=== PATIENT | male | born 1935 | race Caucasian/White ===

== ENCOUNTER 2024-07-04 12:58 | Inpatient (IN) ==
--- NOTE | 2024-07-04 13:31 | Emergency Department Note ---
Impression & Plan Acute on chronic heart failure with preserved ejection fraction, Chronic atrial fibrillation, Chronic anticoagulation, Demand ischemia of myocardium, Pulmonary hypertension ED Provider Note NAME: ZACH MOSS AGE: 88 SEX: M : 1935 ARRIVES VIA: Walk-In INFORMANT: Patient, son ED PROVIDER(S): Luis M Saldana MD CHIEF COMPLAINT: Abnormal blood work, outpatient referral, shortness of breath MEDICAL DECISION MAKING: Patient presents with the above. IV was established and blood work was obtained. The patient does have significant inspiratory and expiratory wheezing taking shallow breaths only. Do believe the patient would benefit from respiratory support. BiPAP started along with Xopenex treatments IV methylprednisolone and IV Lasix. Patient's blood work shows a normal white count with hemoglobin 13.4. Platelet count is unremarkable. VBG pH with a pCO2 of 56 pH is 7.29. INR 2.6. Sodium 130. Patient's initial troponin of 31.2. BNP is 643. Procalcitonin was added. Chest x-ray does show evidence of left-sided pleural effusion. After speaking with the inpatient hospitalist service the patient will be admitted. Dr. Carlton did report the patient did have a recent echo. Does report that patient does have pretty significant pulmonary hypertension. Critical Care: I have personally spent 45 minutes of critical care time in direct management of this patient. This includes bedside care, interpretation of diagnostic studies, and testing, discussion with consultants, patient, and family members, and other require inpatient management activities. This 45 minutes is in excess of all separately billable procedures. Discussion w/ other healthcare providers: Dr. George inpatient medicine service Prior /Outside records reviewed: None Differential diagnosis: Reactive airway disease, pneumonia, pneumothorax, COPD, CHF, ACS, pulmonary embolism, musculoskeletal, GERD as well as other pathologies were considered. Diagnostics, as interpreted by me: ECG: A-fib, rate of 77, normal QRS duration, normal axis no ST elevations. Cardiac monitoring: An order was placed for continuous cardiac monitoring. The monitor shows a rate of 75 with irregular irregular rhythm. Patient was placed on pulse oximetry Medical decision rules: None Imaging studies: I informally interpreted the patient's chest x-ray shows left-sided pleural effusion with formal report to follow. HPI: Patient presents with family at bedside due to concern for worsening shortness of breath and leg swelling. The patient reportedly had swelling just maybe of the feet and ankles beginning in May was seen by his outpatient provider and started on Lasix which she was taking 10 mg only every other day. Patient subsequently had developed worsening swelling was placed on a daily. Patient did have outpatient blood work completed through the [facility] was noted to have a sodium of 124. He was called and referred here for further evaluation treatment. The patient reportedly has had a "phlegmy cough." No smoking history. Patient denies any increase in salt or processed food in the diet. No falls or trauma. PAST MEDICAL HISTORY: See Below PAST SURGICAL HISTORY: See Below SOCIAL HISTORY: See Below HOME MEDICATIONS: See Below ALLERGIES: See Below VITALS: See Below PHYSICAL EXAMINATION: GENERAL: Mildly ill in appearance, shallow breathing noted. EYE EXAM: Normal conjunctiva. PERRL, no anisocoria and EOM's grossly intact w/o pain. OROPHARYNX: Moist mucus membranes, grossly normal dentition. NECK: Trachea midline, no stridor. Supple, no nuchal rigidity, no adenopathy, non-tender. No signs of meningismus. FROM of the neck with good chin to chest and neck extension. LUNGS: Poor inspiratory effort, shallow breathing, diffuse inspiratory expiratory wheezing noted. HEART: Irregularly irregular, no MRG. ABDOMEN: Abdomen soft, non-tender, no masses, no rebound or guarding. BACK: No CVA TTP. SKIN: No rashes and no bruising. UPPER EXTREMITIES: Upper extremities are grossly normal. LOWER EXTREMITIES: Grossly normal, 4+ symmetric pitting edema without calf pain or erythema. NEURO EXAM: A&O x3, cranial nerves II-XII grossly intact, normal speech, moves all 4 extremities. 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 (Acute) Social History Smoking Status: Never smoker Hx Alcohol Use: No Hx Substance Use: No Preferred Language: Macedonian Financial Analyst Required: No Beliefs That Will Affect Care: None Current Living Situation: Spouse and Family Feels Safe at Home: Yes Safety Concerns: Feels Safe At This Time Assistive Devices: Denture - Upper, Denture - Lower, Glasses and Hearing Aid - Bilateral Allergies Allergies Allergy/AdvReac Type Severity Reaction Status Date / Time No Known Allergies Allergy Unverified 07/04/24 14:16 Home Meds Home Medications Medication Instructions Recorded Confirmed atorvastatin 10 mg tablet 10 mg PO .NOON 07/04/24 07/04/24 donepezil 10 mg tablet 10 mg PO PM 07/04/24 07/04/24 ferrous sulfate 325 mg (65 mg 325 mg PO .NOON 07/04/24 07/04/24 iron) tablet (FeroSul) furosemide 20 mg tablet 10 mg PO QAM 07/04/24 07/04/24 levothyroxine 50 mcg tablet 50 mcg PO DAILY 07/04/24 07/04/24 metformin 850 mg tablet 850 mg PO .NOON AND PM 07/04/24 07/04/24 metoprolol tartrate 50 mg tablet 50 mg PO .NOON AND PM 07/04/24 07/04/24 omeprazole 20 mg capsule,delayed 20 mg PO DAILY 07/04/24 07/04/24 release oxymetazoline 0.05 % nasal spray 2 spray intranasal BID PRN 07/04/24 07/04/24 (Afrin (oxymetazoline)) Congestion rivaroxaban 20 mg tablet (Xarelto) 20 mg PO PM 07/04/24 07/04/24 Results & Data (ED) Vital Signs Vital Signs - 24 hr 07/04/24 13:05 07/04/24 14:27 07/04/24 14:27 Temperature 36.4 C L Temperature Source Temporal Artery Scan Pulse Rate 92 H 85 Pulse Rate [Apical] 79 Respiratory Rate 18 26 H 21 Respiratory Effort / Characteristics Labored Short of Breath Labored Short of Breath Respiratory Depth Deep Respiratory Pattern Regular Blood Pressure 119/74 Blood Pressure [Right Arm] Blood Pressure Mean 89 Blood Pressure Mean [Right Arm] Blood Pressure Position Sitting Pulse Oximetry 93 93 99 Oxygen Delivery Method Room Air Room Air Fraction of Inspired Oxygen 30 Sepsis Recent Fever Within 48 Hours No Sepsis New/Unexplained Change in Mental Status N/A Sepsis Action Taken by Nursing No Action Required 07/04/24 14:27 07/04/24 14:27 Temperature Temperature Source Pulse Rate Pulse Rate [Apical] 80 Respiratory Rate 24 Respiratory Effort / Characteristics Labored Short of Breath Respiratory Depth Shallow Respiratory Pattern Regular Blood Pressure Blood Pressure [Right Arm] 125/77 Blood Pressure Mean Blood Pressure Mean [Right Arm] 93 Blood Pressure Position Pulse Oximetry 100 99 Oxygen Delivery Method Nebulizer Nebulizer Fraction of Inspired Oxygen Sepsis Recent Fever Within 48 Hours Sepsis New/Unexplained Change in Mental Status Sepsis Action Taken by Prison Medications Current Medication List: was personally reviewed by me Laboratory Data Attestation: I reviewed the patient's lab results. 07/04/24 13:37 07/04/24 13:37 Lab Results 07/04/24 07/04/24 Range/Units 13:37 14:13 WBC 6.18 (4.8-10.8) K/ul RBC 4.84 (4.70-6.10) M/uL Hgb 13.4 L (14.0-18.0) g/dl Hct 42.6 (42.0-52.0) % MCV 88.0 (80.0-100.0) fL MCH 27.7 (25.0-34.0) pg MCHC 31.5 L (32.0-36.0) g/dL RDW Std Deviation 46.1 (36.4-46.3) fL RDW Coeff of Мария 14.3 (11.5-14.5) % Plt Count 223 (130-400) K/uL MPV 9.2 L (9.4-12.4) fL Immature Gran % (Auto) 0.2 % Neut % (Auto) 66.3 % Lymph % (Auto) 5.7 % Da[place]hin % (Auto) 27.0 % Eos % (Auto) 0.3 % Baso % (Auto) 0.5 % Neut # (Auto) 4.10 (1.40-6.50) K/uL Lymph # (Auto) 0.35 L (1.20-3.40) K/uL Da[place]hin # (Auto) 1.67 H (0.11-0.59) K/uL Eos # (Auto) 0.02 (0.00-0.50) K/uL Baso # (Auto) 0.03 (0.00-0.20) K/uL Immature Gran # (Auto) 0.01 (0.01-0.20) K/uL PT 26.1 H (9.0-12.0) Seconds INR 2.6 H (0.9-1.1) APTT 44 H (21-31) Seconds PTT Ratio 1.6 VBG pH 7.29 L (7.36-7.41) VBG pCO2 56 H (38-50) mmHg VBG pO2 26 mmHg VBG HCO3 27 mmol/L VBG O2 Saturation < 60.0 % VBG Base Excess -0.8 mEq/L Sodium 130 L (136-145) mmol/L Potassium 5.0 (3.5-5.1) mmol/L Chloride 94 L (98-107) mmol/L Carbon Dioxide 30 (21-32) mmol/L Anion Gap 6 (3-11) BUN 28 H (6-23) mg/dl Creatinine 1.04 (0.6-1.4) mg/dl Est Cr Clr Drug Dosing Not Reportable eGFR 69.06 BUN/Creatinine Ratio 26.9 H (10-20) Glucose 131 H (70-99(Fasting)) mg/dl Calcium 9.9 (8.6-10.3) mg/dl Total Bilirubin 1.6 H (0.2-1.0) mg/dl AST 41 H (13-39) U/L ALT 17 (7-52) U/L Alkaline Phosphatase 126 H (34-104) U/L Troponin I High Sens 31.2 H (0-20) pg/ml B-Natriuretic Peptide 643 H (0-100) pg/ml Total Protein 6.3 (6.0-8.3) gm/dl Albumin 3.6 (3.4-5.0) gm/dl Globulin 2.7 (2.5-4.0) gm/dl Albumin/Globulin Ratio 1.3 (0.9-2) Procalcitonin 0.18 (0-0.5) ng/ml Administered Medications Furosemide (Furosemide 40 Mg/4 Ml Vial) 40 mg IV [id number] [facility] Stop: 08/03/24 17:29 Last Admin: 07/04/24 18:16 Dose: 40 mg Documented By: SHIRLEY Insulin Aspart (Insulin Aspart Per Unit Charge) 0 units SC ACHS [facility] Stop: 08/03/24 17:12 Last Admin: 07/04/24 17:51 Dose: Not Given Documented By: SHIRLEY Discontinued Medications Furosemide (Furosemide 40 Mg/4 Ml Vial) 40 mg IV ONE ONE Stop: 07/04/24 14:03 Last Admin: 07/04/24 14:16 Dose: 40 mg Documented By: GCC Levalbuterol HCl (Levalbuterol 1.25 Mg/3 Ml Neb) 2.5 mg NEB NOW STA Stop: 07/04/24 14:03 Last Admin: 07/04/24 14:13 Dose: 2.5 mg Documented By: [id number] Methylprednisolone (Methylprednisolone 125 Mg/2 Ml Vial) 60 mg IV NOW STA Stop: 07/04/24 14:03 Last Admin: 07/04/24 14:16 Dose: 60 mg Documented By: GCC Imaging Data Radiologist's Impression: Chest X-Ray 07/04/24 13:10 XR chest 1V portable CLINICAL HISTORY: Chest pain, nonspecific COMPARISON STUDY: None FINDINGS: There is mild cardiomegaly without pulmonary vascular congestion. There is hazy opacity at the left lower lung with obscuration of the left hemidiaphragm. There is mild blunting of the right costophrenic angle. No pneumothorax. IMPRESSION: Opacity at the left lower lung likely represents left pleural effusion and associated pulmonary consolidation. ACT 112: Negative or not required by law. Electronically signed by: Jonathan Go M.D. 07/04/2024 2:11 PM Discharge Plan Visit Data Chief Complaint: Abnormal Labs/Diagnostic Testing Stated Complaint: LOW SODIUM BLOOD TEST, REFERRED BY PCP ED Provider: Luis M Saldana Discharge Problem: Acute on chronic heart failure with preserved ejection fraction, Chronic atrial fibrillation, Chronic anticoagulation, Demand ischemia of myocardium, Pulmonary hypertension Patient Disposition: Admitted As Inpatient Discharge Instructions Interventions: ED Discharge Assessment Last Done: 07/04/24 16:18
[2024-07-04 13:59] LABS: Basophils # (auto) 0.03 K/uL (0.00-0.20); Basophils % (auto) 0.5 %; Eosinophils # (auto) 0.02 K/uL (0.00-0.50); Eosinophils % (auto) 0.3 %; Hematocrit (blood only) 42.6 % (42.0-52.0); Hemoglobin 13.4 g/dl (14.0-18.0); Immature Granulocytes # (auto) 0.01 K/uL (0.01-0.20); Immature Granulocytes % (auto) 0.2 %; Lymphocytes # (auto) 0.35 K/uL (1.20-3.40); Lymphocytes % (auto) 5.7 %; Mean Corpuscular Hemoglobin 27.7 pg (25.0-34.0); Mean Corpuscular Hgb Conc 31.5 g/dL (32.0-36.0); Mean Platelet Volume 9.2 fL (9.4-12.4); Monocytes # (auto) 1.67 K/uL (0.11-0.59); Neutrophils % (auto) 66.3 %; Platelet Count 223 K/uL (130-400); RDW Coefficient of Variation 14.3 % (11.5-14.5); RDW Standard Deviation 46.1 fL (36.4-46.3); Red Blood Count 4.84 M/uL (4.70-6.10); White Blood Count 6.18 K/ul (4.8-10.8)
--- NOTE | 2024-07-04 14:12 | XRay Report ---
XR chest 1V portable CLINICAL HISTORY: Chest pain, nonspecific COMPARISON STUDY: None FINDINGS: There is mild cardiomegaly without pulmonary vascular congestion. There is hazy opacity at the left lower lung with obscuration of the left hemidiaphragm. There is mild blunting of the right c ostophrenic angle. No pneumothorax. IMPRESSION: Opacity at the left lower lung likely represents left pleural effusion and associated pu lmonary consolidation. ACT 112: Negative or not required by law. Electronically signed by: Jonathan Go M.D. 07/04/2024 2:11 PM
[2024-07-04] MEDS: LEVALBUTEROL 1.25 MG/3 ML NEB NEB STA (14:13)
[2024-07-04 14:16] LABS: Alanine Aminotransferase 17 U/L (7-52); Albumin Globulin Ratio 1.3 (0.9-2); Albumin Level 3.6 gm/dl (3.4-5.0); Alkaline Phosphatase 126 U/L (34-104); Anion Gap 6 (3-11); Aspartate Aminotransferase 41 U/L (13-39); BUN Creatinine Ratio 26.9 (10-20); Bilirubin,Total 1.6 mg/dl (0.2-1.0); Blood Urea Nitrogen 28 mg/dl (6-23); Calcium 9.9 mg/dl (8.6-10.3); Carbon Dioxide 30 mmol/L (21-32); Chloride 94 mmol/L (98-107); Globulin 2.7 gm/dl (2.5-4.0); Glucose 131 mg/dl (70-99(Fasting)); Sodium 130 mmol/L (136-145); Total Protein 6.3 gm/dl (6.0-8.3)
[2024-07-04] MEDS: FUROSEMIDE 40 MG/4 ML VIAL IV ONE (14:16)
[2024-07-04] MEDS: methylPREDNISolone 125 MG/2 ML VIAL IV STA (14:16)
[2024-07-04 14:21] LABS: Troponin I High Sensitivity 31.2 pg/ml (0-20)
[2024-07-04 14:32] LABS: INR 2.6 (0.9-1.1); Partial Thromboplastin Ratio 1.6; Partial Thromboplastin Time 44 Seconds (21-31); Prothrombin Time 26.1 Seconds (9.0-12.0)
[2024-07-04 14:37] LABS: Base Excess VBG -0.8 mEq/L; HCO3 VBG 27 mmol/L; Oxygen Saturation VBG < 60.0 %; PCO2 VBG 56 mmHg (38-50); PO2 VBG 26 mmHg; pH VBG 7.29 (7.36-7.41)
--- NOTE | 2024-07-04 15:36 | History & Physical Report ---
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 Patient has exhibited significant amount of weight gain and edema over the last 3 to 4 weeks. Patient requires hospital level care and intervention. He needs IV diuresis and monitoring of his electrolytes and renal function. Admit to a monitored setting Continue IV Lasix for diuresis Monitor electrolytes and kidneys Continue metoprolol for rate control of his chronic atrial fibrillation Continue Xarelto for chronic anticoagulation setting of atrial fibrillation Monitor glucose and cover with insulin sliding scale Check hemoglobin A1c Check TSH to ensure patient is appropriately dosed with his Synthroid Sodium and fluid restriction in his diet Conversation with patient and son at bedside, patient has expressed his advance directives and does have a living will. He request to be DNR/DNI. History of Present Illness Chief Complaint: Increasing leg edema and some lab abnormalities. Primary Care Provider: Dejah Rivas MD Patient is an 88-year-old gentleman who over the last 6 weeks or so had noticed increasing leg edema. He did see his outpatient provider and was started on low-dose Lasix. Echocardiogram was done about 3 weeks ago which showed normal ejection fraction but pretty significant pulmonary hypertension. Patient continued to get more edematous. With this he got more short of breath and fatigued with any type of activity. Was sent to the emergency room by his PCP due to the symptoms and some laboratory abnormalities. In the emergency room his workup was consistent with right-sided heart failure with significant edema. It is noted that he has gained at least 9 kg over the past 3 to 4 weeks. BNP was elevated. Troponins were consistent with heart failure. Referred to our service for further evaluation. Time of my evaluation patient had been on BiPAP for the heart failure. This was removed. Did not have significant pulmonary congestion on imaging. He was saturating 99% on room air. With removal of the BiPAP able to converse. He states that other than the edema and the increasing fatigue he denies any chest pain. No palpitations. No real joint pains. He has been eating and drinking well. No fever or chills. Does have a wheezing and cough which is developed as edema has increased. No purulent sputum. Has noted swelling well up into his abdomen at this time. Patient's and son at the bedside and confirms history as well. Allergies Allergy/AdvReac Type Severity Reaction Status Date / Time No Known Allergies Allergy Unverified 07/04/24 14:16 Home Medications Medication Instructions Recorded Confirmed Type atorvastatin 10 mg tablet 10 mg PO .NOON 07/04/24 07/04/24 History donepezil 10 mg tablet 10 mg PO PM 07/04/24 07/04/24 History ferrous sulfate 325 mg (65 mg 325 mg PO .NOON 07/04/24 07/04/24 History iron) tablet (FeroSul) furosemide 20 mg tablet 10 mg PO QAM 07/04/24 07/04/24 History levothyroxine 50 mcg tablet 50 mcg PO DAILY 07/04/24 07/04/24 History metformin 850 mg tablet 850 mg PO .NOON AND PM 07/04/24 07/04/24 History metoprolol tartrate 50 mg tablet 50 mg PO .NOON AND PM 07/04/24 07/04/24 History omeprazole 20 mg capsule,delayed 20 mg PO DAILY 07/04/24 07/04/24 History release oxymetazoline 0.05 % nasal spray 2 spray intranasal BID PRN 07/04/24 07/04/24 History (Afrin (oxymetazoline)) Congestion rivaroxaban 20 mg tablet (Xarelto) 20 mg PO PM 07/04/24 07/04/24 History Past Med/Surg History Problem List (Updated 07/04/24 @ 15:34 by Higinio Mcnair DO) Demand ischemia of myocardium Chronic anticoagulation Hypothyroidism Diabetes mellitus type 2, controlled, with complications Chronic atrial fibrillation Pulmonary hypertension 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 Sclera clear Neck: Soft, no adenopathy Lungs: Decreased breath sounds, coarse rhonchi that clears with cough, Rales throughout CV: S1-S2, irregular Abdomen: Soft, nontender, nondistended, thick pitting edema in the abdominal pannus above the umbilicus Extremities: Thick, soft, pitting edema from lower extremities extending above the knee and posterior thighs and sacrum bilaterally Musculoskeletal: No significant joint tenderness Neuro: No focal deficits Psych: Cooperative, normal mood Results & Data Results & Data Vital Signs (Past 12 Hours) Vital Signs Temp Pulse Pulse Resp BP BP Pulse Ox 07/04/24 14:27 99 07/04/24 14:27 80 24 125/77 100 07/04/24 14:27 85 21 99 07/04/24 14:27 79 26 H 93 07/04/24 13:05 36.4 C L 92 H 18 119/74 93 O2 Del Method FiO2 07/04/24 14:27 Nebulizer 07/04/24 14:27 Nebulizer 07/04/24 14:27 30 07/04/24 14:27 Room Air 07/04/24 13:05 Room Air Diagnostic Findings Reviewed imaging, laboratory and diagnostic studies. Pertinent findings as below. Hemoglobin 13.4 WBCs 6.1 Platelets of 223 PT 26.1 INR 2.6 PTT 44 Venous pH 7.29 Venous pCO2 56 Sodium 130 Potassium 5.0 Chloride 94 BUN 28 Glucose 131 AST 41 Alk phos 126 Troponin 31.2 BNP 643 Procalcitonin 0.18 Personally reviewed chest x-ray images, left-sided pleural effusion Personally reviewed EKG, atrial fibrillation Reviewed outside EMR: Reviewed past medical history, surgical history, medications, social history and outside EMR Reviewed echocardiogram from 06/2024: Ejection fraction 65%, pulmonary hypertension 55 to 60 mmHg, right ventricular systolic dysfunction Weight in office early June was 105 kg Code Status & VTE Plan VTE Prophylaxis Plan VTE Prophylaxis will be ordered: No Reason for no VTE drug order: Contraindicated
[2024-07-04] MEDS ORDERED: GLUCAGON FOR INJ 1 MG VIAL SQ PRN (17:13)
[2024-07-04] MEDS ORDERED: GLUCOSE 10 TAB/TUBE PO PRN (17:13)
[2024-07-04] MEDS ORDERED: GLUCOSE 40% GEL 15 GM TUBE PO PRN (17:13)
[2024-07-04] MEDS ORDERED: CARBOHYDRATES FOR HYPOGLYCEMIA PO PRN (17:13)
[2024-07-04] MEDS ORDERED: ONDANSETRON INJ 2 MG/ML 2 ML VIAL IV PRN (17:13)
[2024-07-04] MEDS ORDERED: DEXTROSE 50% 50 ML SYRINGE IV PRN (17:13)
[2024-07-04] MEDS ORDERED: ALUMINUM/MAGNESIUM SUSP 30 ML UDC PO PRN (17:13)
[2024-07-04] MEDS: INSULIN ASPART PER UNIT CHARGE SC SCH (17:51)
[2024-07-04] MEDS: FUROSEMIDE 40 MG/4 ML VIAL IV SCH (18:16)
[2024-07-04] MEDS: DONEPEZIL HCL 10 MG TAB PO SCH (20:23)
[2024-07-04] MEDS: METOPROLOL TARTRATE 50 MG TAB PO SCH (20:24)
[2024-07-04] MEDS: RIVAROXABAN 20 MG TAB PO SCH (20:24)
[2024-07-05 08:27] LABS: BUN Creatinine Ratio 34.6 (10-20); Calcium 9.6 mg/dl (8.6-10.3); Creatinine Clr Calc Pharmacy 81.8 ml/min; Magnesium 1.7 mg/dl (1.7-2.4); Phosphorus 3.2 mg/dl (2.5-4.9)
[2024-07-05] MEDS: PANTOprazole 40 MG TAB PO SCH (08:41)
[2024-07-05] MEDS: LEVOTHYROXINE SODIUM 50 MCG TABLET PO SCH (08:41)
[2024-07-05 08:44] LABS: Thyroid Stimulating Hormone 2.907 uIu/ml (0.300-4.500)
[2024-07-05 10:14] LABS: Estimated Average Glucose 140 mg/dl; Hemoglobin A1C 6.5 % (4.5-5.6)
[2024-07-05] MEDS: FERROUS SULFATE 325 MG TAB PO SCH (13:02)
[2024-07-05] MEDS: ATORVASTATIN 10 MG TAB PO SCH (13:02)
--- NOTE | 2024-07-05 14:01 | Hospitalist Progress Note ---
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 Patient has responded well to IV diuresis Continue IV Lasix Continue to monitor electrolytes and renal function Therapies TSH is therapeutic continue current dose of Synthroid Glucose reviewed, hemoglobin A1c well-controlled continue current management Continue other medications as prescribed including anticoagulation Updated son via phone. Reports that's patient is at baseline confused. Does get worse anytime he is a new stressor. Reports that at neurology office what sounds like Mini-Mental status exam scored 16. Admission and Anticipated Discharge Date Admission Date: July 04, 2024 Subjective Nursing reports that patient is intermittently confused. Patient very motivated to get better. Feels that his breathing is a lot easier. Physical Exam Physical Exam: Constitutional: Alert, no acute distress, audible congestion significantly improved over yesterday HEENT: Mucous membranes moist. Lungs: Decreased breath sounds, some rhonchi and rales throughout CV: S1-S2, irregular Abdomen: Soft, nontender, nondistended, thick edema and abdominal pannus has improved, has dropped below the umbilicus Extremities: Continued thick pitting edema lower extremity up through posterior thighs and sacrum, slightly improved Neuro: No focal deficits Psych: Cooperative, normal mood, intermittent confusion Results & Data Results & Data Vital Signs (Past 12 Hours) Vital Signs Temp Pulse Pulse Resp BP Pulse Ox Pulse Ox 07/05/24 10:44 36.8 C 99 H 19 127/77 93 07/05/24 08:45 78 07/05/24 08:00 07/05/24 08:00 93 07/05/24 07:07 36.5 C 74 17 116/75 94 O2 Del Method O2 Del Method 07/05/24 10:44 Room Air 07/05/24 08:45 07/05/24 08:00 Room Air 07/05/24 08:00 Room Air 07/05/24 07:07 Room Air Diagnostic Findings Reviewed imaging, laboratory and diagnostic studies. Pertinent findings as below. Sodium 131 Chloride 93 Bicarb 33 Creatinine 0.78 Hemoglobin A1c 6.5% TSH 2.9 Intake and output reviewed, weights reviewed, negative output, weight decreased
--- NOTE | 2024-07-05 21:09 | Electrocardiogram Report ---
Test Reason : Blood Pressure : */* mmHG Vent. Rate : 77 BPM Atrial Rate : * BPM P-R Int : * ms QRS Dur : 88 ms QT Int : 362 ms P-R-T Axes : * -4 67 degrees QTcB Int : 409 ms Atrial fibrillation Low voltage QRS Cannot rule out Anteroseptal infarct , age undetermined Abnormal ECG No previous ECGs available Confirmed by Nakul Peterson ([id number]) on 07/05/2024 9:09:16 PM Referred By: Confirmed By: Nakul Peterson
[2024-07-06 08:33] LABS: BUN Creatinine Ratio 35.2 (10-20); Calcium 9.5 mg/dl (8.6-10.3); Creatinine Clr Calc Pharmacy 89.3 ml/min; Magnesium 1.6 mg/dl (1.7-2.4); Potassium 3.3 mmol/L (3.5-5.1)
[2024-07-06] MEDS: ALBUT/IPRATROP 3MG/0.5MG NEB 3 ML VIAL NEB SCH (10:49)
--- NOTE | 2024-07-06 14:21 | Hospitalist Progress Note ---
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 Edema/anasarca significantly improving Continue IV diuresis through today Replace electrolytes Consider transition to oral diuretics tomorrow Patient seems to continue to have some bronchospasm/wheezing despite his diuresis. Will schedule DuoNeb and continue to evaluate daily Continue to monitor glucose with insulin sliding scale Continue metoprolol and Xarelto for rate control of A-fib and secondary stroke prevention Continue to reorient and educate patient on condition. Updated patient's son, Jonathan via phone Admission and Anticipated Discharge Date Admission Date: July 04, 2024 Subjective Patient confused which is his baseline. Does not remember being in the hospital yesterday. Does not remember why he is in the hospital. Initially he is disagreeable to plan of care but eventually is cooperative and agreeing to stay in the hospital least another additional day. Denies chest pain. No shortness of breath. Physical Exam Physical Exam: Constitutional: Alert, nontoxic, no acute distress HEENT: Mucous membranes moist. Lungs: Decreased breath sounds, diffuse wheezing, few rales at bases CV: S1-S2, irregular Abdomen: Soft, nontender, nondistended Extremities: Lower extremity edema improving. Edema and thighs and sacrum decreasing, skin is becoming a little bit looser. Edema and abdominal pannus essentially resolved. Neuro: No focal deficits Psych: Cooperative, normal mood, abnormal memory Results & Data Results & Data Vital Signs (Past 12 Hours) Vital Signs Temp Pulse Pulse Pulse Resp BP Pulse Ox 07/06/24 11:50 36.2 C L 83 18 127/72 93 07/06/24 10:49 85 16 94 07/06/24 10:02 36.3 C L 07/06/24 09:55 07/06/24 09:39 07/06/24 09:38 88 07/06/24 09:36 114 H 18 149/96 H 95 07/06/24 08:27 07/06/24 07:18 36.3 C L 79 18 129/84 96 07/06/24 03:45 36.3 C L 71 18 111/72 93 Pulse Ox O2 Del Method O2 Del Method 07/06/24 11:50 Room Air 07/06/24 10:49 Room Air 07/06/24 10:02 07/06/24 09:55 Room Air 07/06/24 09:39 94 Room Air 07/06/24 09:38 07/06/24 09:36 Room Air 07/06/24 08:27 Room Air 07/06/24 07:18 Room Air 07/06/24 03:45 Room Air Diagnostic Findings Reviewed imaging, laboratory and diagnostic studies. Pertinent findings as below. Potassium 3.3 Magnesium 1.6 Creatinine 0.71
[2024-07-06] MEDS: POTASSIUM CHLORIDE CRTAB 20 MEQ TABCR PO SCH (14:30)
[2024-07-06] MEDS: MAGNESIUM SULFATE / D5W 1 GM/100 ML BAG IV SCH (14:32)
[2024-07-06] MEDS: ACETAMINOPHEN 325 MG TAB PO PRN (21:53)
[2024-07-06] MEDS: NYSTATIN POWDER 15GM BTL EXT SCH (22:05)
[2024-07-07] MEDS: OLANZapine 10 MG/2.1 ML SDV IM PRN (04:13)
[2024-07-07 06:43] LABS: Hematocrit (blood only) 46.5 % (42.0-52.0); Hemoglobin 15.1 g/dl (14.0-18.0); Mean Corpuscular Hemoglobin 27.7 pg (25.0-34.0); Mean Corpuscular Hgb Conc 32.5 g/dL (32.0-36.0); Mean Corpuscular Volume 85.3 fL (80.0-100.0); Mean Platelet Volume 8.8 fL (9.4-12.4); Platelet Count 218 K/uL (130-400); RDW Coefficient of Variation 14.3 % (11.5-14.5); RDW Standard Deviation 43.9 fL (36.4-46.3); Red Blood Count 5.45 M/uL (4.70-6.10); White Blood Count 7.24 K/ul (4.8-10.8)
[2024-07-07 07:03] LABS: BUN Creatinine Ratio 27.2 (10-20); Calcium 9.2 mg/dl (8.6-10.3); Creatinine Clr Calc Pharmacy 75.6 ml/min; Magnesium 1.9 mg/dl (1.7-2.4); Potassium 3.5 mmol/L (3.5-5.1)
[2024-07-07] MEDS: POTASSIUM CHLORIDE CRTAB 20 MEQ TABCR PO SCH (07:29)
[2024-07-07] MEDS: MAGNESIUM OXIDE 400 MG TAB PO SCH (07:38)
[2024-07-07] MEDS: acetaZOLAMIDE 500 MG in SYRINGE 0 ML IV ONE (07:38)
--- NOTE | 2024-07-07 13:05 | Hospitalist Progress Note ---
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 Displaying some component of contraction alkalosis with increasing carbon dioxide. No additional loop diuretic today Diamox x 1 dose today Anticipate starting oral Lasix tomorrow Continue other medications Continue therapies Continue to replace electrolytes Glucose monitoring continues with insulin coverage, overall controlled Monitor electrolytes and renal function via lab in the morning Updated son via phone, planning to have patient return home with him and family Admission and Anticipated Discharge Date Admission Date: July 04, 2024 Subjective Patient sitting up and eating breakfast this morning. Denies any pain or shortness of breath. More interactive and cooperative today. Physical Exam Physical Exam: Constitutional: Alert, nontoxic HEENT: Mucous membranes moist. Lungs: Decreased breath sounds, improved wheezing CV: S1-S2, irregular Abdomen: Soft, nontender, nondistended Extremities: Anasarca/lower extremity edema continues to improve Neuro: No focal deficits Psych: Cooperative, normal mood Results & Data Results & Data Vital Signs (Past 12 Hours) Vital Signs Temp Pulse Pulse Pulse Resp BP Pulse Ox 07/07/24 11:38 36.4 C L 98 H 16 116/60 99 07/07/24 11:17 86 18 96 07/07/24 07:43 07/07/24 07:24 83 15 96 07/07/24 07:18 36.3 C L 96 H 96 H 20 148/83 H 94 07/07/24 07:08 87 07/07/24 02:00 36.7 C 75 18 133/74 97 O2 Del Method 07/07/24 11:38 Room Air 07/07/24 11:17 Room Air 07/07/24 07:43 Room Air 07/07/24 07:24 Room Air 07/07/24 07:18 Room Air 07/07/24 07:08 07/07/24 02:00 Room Air Diagnostic Findings Reviewed imaging, laboratory and diagnostic studies. Pertinent findings as below. Intake and output reviewed, negative at least 8 L since admission Weight 95.6 kg, significantly decreased CBC stable Potassium 3.5 Carbon dioxide 38 Creatinine 0.81 Magnesium 1.9
--- NOTE | 2024-07-08 00:17 | Communication Note ---
Date of Service: July 08, 2024 Patient increasingly confused, combative, restless, and grabbing at Flood catheter. Garbled speech from the other night worse as per RN. No unusual arm or leg weakness as per RN. AP Encephalopathy, garbled speech Delirium on dementia Rule out CVA, history NOAC Rx Rule out UTI CT head, hold NOAC Rx for now Check UA ADDENDUM: UA noted to be cloudy, WBC esterase positive Urine CS, ceftriaxone for possible UTI
[2024-07-08 00:35] LABS: Appearance Urine Cloudy (Clear); Bacteria Urine Automated None Seen (None Seen); Bilirubin Urine Negative (Negative); Blood Urine 3+ (Negative); Cast Urine Automated 0-2 /lpf (0-2); Color Urine Orange; Epithelial Cell Urine Auto 0-2 /hpf (0-2); Glucose Urine UA Negative (Negative); Ketones Urine Negative (Negative); Leukocyte Esterase Urine 1+ (Negative); Nitrite Urine Negative (Negative); Protein Urine 2+ (Negative); RBC Urine Automated >20 /hpf (0-2); Specific Gravity Urine 1.019 (1.000-1.030); Urobilinogen Urine Positive (Negative); pH Urine >= 9.0 (4.5-7.5)
[2024-07-08] MEDS: OLANZapine 10 MG/2.1 ML SDV IM STA (00:47)
[2024-07-08] MEDS: cefTRIAXone SODIUM 2,000 MG/50 ML BAG IV SCH (02:46)
[2024-07-08] MEDS: MAGNESIUM SULFATE / D5W 1 GM/100 ML BAG IV ONE (04:21)
--- NOTE | 2024-07-08 09:34 | CT Scan Report ---
EXAM: CT head/brain wo con CLINICAL HISTORY: sean rod TECHNIQUE: Axial noncontrast CT scan of the brain was performed from the skull base to the high parietal region. One of the following dose reduction techniques were utilized for this exam: Automated exposure control, adjustment of the mA and/or kV according to patient size, use of iterative reconstruction. DLP 625.80 COMPARISON: None. FINDINGS: The visualized brain parenchyma shows normal appearance. No focal parenchymal abnormalities are demonstrated. Dolan-white matter differentiation is maintained. No midline shifts or deformity. No intracerebral or extra axial hematoma. Prominent ventricular system and extra-axial CSF spaces suggestive of age-related involutional changes. Normal CT appearance of the posterior fossa structures namely the cerebellar hemispheres, brainstem and cerebellar peduncles. The cerebello-pontine angles are clear. The osseous structures in the skull base are unremarkable. No definite calvarium fractures. Scanned paranasal sinuses are clear. IMPRESSION: 1. No evidence of established infarction, intracranial or extracranial hemorrhage. Early changes of stroke may not be detected on a CT scan. If strong clinical suspicion of stroke then suggest MRI with diffusion-weighted imaging. 2. Appropriate age-related involutional changes. Electronically signed by Nikolay Méndez 07-08-2024 03:06 AM
[2024-07-08 09:39] LABS: BUN Creatinine Ratio 21.6 (10-20); Calcium 8.9 mg/dl (8.6-10.3); Magnesium 1.8 mg/dl (1.7-2.4); Potassium 3.4 mmol/L (3.5-5.1)
--- NOTE | 2024-07-08 12:38 | Hospitalist Progress Note ---
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 Continue to reorient, attempt to encourage normal sleep- wake cycle. Zyprexa as needed Patient has diuresed well, metabolic alkalosis/contraction alkalosis has resolved with Diamox dosing, institute oral Lasix today Replace potassium Monitor laboratory studies Remove Flood catheter now that he is no longer having IV diuresis, this may help with some of his irritability as well. Low suspicion for UTI based on urinalysis, discontinue ceftriaxone Continue other medications as ordered Phone update to patient's son. Admission and Anticipated Discharge Date Admission Date: July 04, 2024 Subjective Events of last night noted, acute delirium in the setting of his underlying dementia most likely due to his medical condition and hospitalization. This morning much more confused than he had been previous mornings. Physical Exam Physical Exam: Constitutional: Alert, nontoxic HEENT: Mucous membranes moist. Lungs: Decreased breath sounds, few scattered wheezes CV: S1-S2, irregular Abdomen: Soft, nontender, nondistended Extremities: Lower extremity edema continues to improve Neuro: No focal deficits, generally weak Psych: Confused, irritable, at times not cooperative, abnormal memory Results & Data Results & Data Vital Signs (Past 12 Hours) Vital Signs Temp Pulse Pulse Resp BP Pulse Ox O2 Del Method 07/08/24 11:15 36.9 C 102 H 19 149/77 H 97 Room Air 07/08/24 10:46 Room Air 07/08/24 07:19 36.5 C 83 17 113/60 97 Room Air 07/08/24 07:18 92 H 07/08/24 06:54 80 18 91 Room Air 07/08/24 03:09 36.4 C L 107 H 20 108/69 93 Room Air Diagnostic Findings Reviewed imaging, laboratory and diagnostic studies. Pertinent findings as below. Potassium 3.4 Carbon dioxide 28 Creatinine 0.74 Urinalysis reviewed, negative nitrate 1+ leukocyte esterase, no bacteria seen Head CT no acute abnormalities
[2024-07-08] MEDS: FUROSEMIDE 40 MG TAB PO SCH (15:28)
--- NOTE | 2024-07-08 21:16 | Communication Note ---
Date of Service: July 08, 202407/09 2119 Code purple called. Patient noted to be unresponsive by RN. Patient only moaning to pain. SBP 100s BSG 110s. AP Unresponsiveness CT head given Xarelto Rx Hold home diuretic for now given borderline BP IV albumin [address] head No acute intracranial finding. 07/09 29 Patient awake and answering questions as per RN update.
[2024-07-08] MEDS: ALBUMIN 25% 12.5 GM/50 ML VIAL IV ONE (22:11)
[2024-07-08 22:14] LABS: BUN Creatinine Ratio 20.2 (10-20); Calcium 9.3 mg/dl (8.6-10.3); Creatinine Clr Calc Pharmacy 73.1 ml/min; Potassium 3.4 mmol/L (3.5-5.1)
[2024-07-08] MEDS: POTASSIUM CHLORIDE / WTR 10 MEQ/100 ML PLCT IV SCH (22:58)
[2024-07-08 23:20] LABS: Base Excess VBG 3.7 mEq/L; HCO3 VBG 30 mmol/L; Oxygen Saturation VBG < 60.0 %; PCO2 VBG 49 mmHg (38-50); PO2 VBG 24 mmHg; pH VBG 7.39 (7.36-7.41)
--- NOTE | 2024-07-08 23:34 | CT Scan Report ---
Exam(s): CT HEAD Without Contrast EXAM: CT Head Without Intravenous Contrast CLINICAL HISTORY: Altered mental status TECHNIQUE: Axial computed tomography images of the head/brain without intravenous contrast. CTDI is 37 mGy and DLP is 626 mGy-cm. Automated exposure control was utilized for the study. A dose lowering technique was utilized adhering to the principles of ALARA. COMPARISON: CT head earlier today FINDINGS: Brain: No intracranial hemorrhage, mass-effect or midline shift. No abnormal extra axial fluid. No evidence of acute infarct. Mild periventricular white matter hypodensities are most consistent with chronic microangiopathy. Ventricles: Unremarkable. No ventriculomegaly. Bones/joints: Unremarkable. No acute fracture. Soft tissues: Unremarkable. Sinuses: Unremarkable as visualized. No acute sinusitis. Mastoid air cells: Unremarkable as visualized. No mastoid effusion. IMPRESSION: No acute intracranial finding. Electronically signed by: Aria Collins MD 07/08/24 23:33 PM
[2024-07-09 08:08] LABS: BUN Creatinine Ratio 24.7 (10-20); Calcium 9.1 mg/dl (8.6-10.3); Creatinine Clr Calc Pharmacy 79.9 ml/min; Potassium 3.9 mmol/L (3.5-5.1)
[2024-07-09 08:24] VITALS: TEMP 97.7
[2024-07-09] MEDS: FUROSEMIDE 40 MG TAB PO SCH (13:09)
[2024-07-09 15:10] VITALS: PULSE 79; RESP 18; O2SAT 96
--- NOTE | 2024-07-09 15:25 | Discharge Summary ---
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 In the emergency room was noted to be extremely edematous and some elevated troponin. Patient was referred to our service for further evaluation. Patient was admitted to the hospital. He was diuresed with IV Lasix. Patient had recently had an echocardiogram which showed significant pulmonary hypertension and right ventricular dysfunction. His heart failure was related to this and acute cor pulmonale. The patient rapidly responded to the IV diuresis. His weight steadily decreased and his symptoms significantly improved. With the diuresis he did have some metabolic alkalosis. He was treated with 1 dose of Diamox and this was corrected. He was transition to oral Lasix. He was seen by therapies. Patient has known dementia. His family is managing this and are committed to continuing his care at home. Case management was involved in his care as well and has coordinated home services for them upon discharge. During his hospitalization he needed electrolyte replacement. He was continued on his beta-dany and anticoagulation. On the day of discharge family is at the bedside. They felt comfortable taking him home. He did pretty well with transferring from bed to chair. His vital signs are stable. His weight had decreased from 114 kg to 96.5 kg. His anasarca had essentially resolved. He continued to have some lower extremity edema but significantly improved when compared to admission. He his home Lasix dose was corrected and increased for discharge. He will continue with oral potassium supplementation. Family requested a medication to help should he get more agitated home with his dementia. They do follow regularly with outpatient neurology. Patient had responded well to IM Zyprexa here in the hospital x 1 dose. Will give some Zyprexa Zydis to use sparingly at home if he has agitation. Son and are at the bedside and repair taken will coordinate and continue to follow with outpatient providers. Notes For Next Care Provider May need to adjust diuretic dose pending patient's weight and symptoms Consider BMP, magnesium level in 10 to 14 days May need ongoing support as patient's dementia progresses. May need to consider dementia unit or other care place if progresses. Medication Changes From Visit Lasix dose increased Daily potassium Zyprexa as needed Admission HPI Per Admitting Provider Patient is an 88-year-old gentleman who over the last 6 weeks or so had noticed increasing leg edema. He did see his outpatient provider and was started on low-dose Lasix. Echocardiogram was done about 3 weeks ago which showed normal ejection fraction but pretty significant pulmonary hypertension. Patient continued to get more edematous. With this he got more short of breath and fatigued with any type of activity. Was sent to the emergency room by his PCP due to the symptoms and some laboratory abnormalities. In the emergency room his workup was consistent with right-sided heart failure with significant edema. It is noted that he has gained at least 9 kg over the past 3 to 4 weeks. BNP was elevated. Troponins were consistent with heart failure. Referred to our service for further evaluation. Time of my evaluation patient had been on BiPAP for the heart failure. This was removed. Did not have significant pulmonary congestion on imaging. He was saturating 99% on room air. With removal of the BiPAP able to converse. He states that other than the edema and the increasing fatigue he denies any chest pain. No palpitations. No real joint pains. He has been eating and drinking well. No fever or chills. Does have a wheezing and cough which is developed as edema has increased. No purulent sputum. Has noted swelling well up into his abdomen at this time. Patient's and son at the bedside and confirms history as well. Admission Exam Per Admitting Provider See H&P Discharge Exam Constitutional: Alert HEENT: Mucous membranes moist. Lungs: Clear to auscultation, decreased, no wheezes rales or rhonchi CV: S1-S2, irregular Abdomen: Soft, nontender, nondistended, edema and abdominal pannus completely resolved Extremities: Significantly decreased edema in the lower extremities, some trace posterior thigh edema, 1+ edema in lower extremities Neuro: No focal deficits Psych: Cooperative, normal mood, dementia Updated Medication List Medication Instructions Recorded Confirmed Type clotrimazole-betamethasone 1 1 applic topical BID PRN Rash 11/13/19 11/17/19 History %-0.05 % topical cream levothyroxine 50 mcg tablet 50 mcg PO QAM 11/13/19 11/17/19 History lisinopril 20 1 tab PO QAM 11/13/19 11/17/19 History mg-hydrochlorothiazide 12.5 mg tablet metformin 850 mg tablet 850 mg PO BIDM 11/13/19 11/17/19 History niacin 500 mg tablet 500 mg PO QAM 11/13/19 11/17/19 History omeprazole 20 mg tablet,delayed 20 mg PO Q OTHER DAY 11/13/19 11/17/19 History release tetrahydrozoline 0.05 % eye drops 1 drp ophthalmic (eye) QAM 11/13/19 11/17/19 History (Visine) atorvastatin 10 mg tablet 10 mg PO .NOON 07/04/24 07/04/24 History donepezil 10 mg tablet 10 mg PO PM 07/04/24 07/04/24 History ferrous sulfate 325 mg (65 mg 325 mg PO .NOON 07/04/24 07/04/24 History iron) tablet (FeroSul) furosemide 20 mg tablet 10 mg PO QAM 07/04/24 07/04/24 History levothyroxine 50 mcg tablet 50 mcg PO DAILY 07/04/24 07/04/24 History metformin 850 mg tablet 850 mg PO .NOON AND PM 07/04/24 07/04/24 History metoprolol tartrate 50 mg tablet 50 mg PO .NOON AND PM 07/04/24 07/04/24 History omeprazole 20 mg capsule,delayed 20 mg PO DAILY 07/04/24 07/04/24 History release oxymetazoline 0.05 % nasal spray 2 spray intranasal BID PRN 07/04/24 07/04/24 History (Afrin (oxymetazoline)) Congestion rivaroxaban 20 mg tablet (Xarelto) 20 mg PO PM 07/04/24 07/04/24 History furosemide 40 mg tablet 40 mg PO QAM #30 tabs 07/09/24 Rx magnesium oxide 400 mg (241.3 mg 400 mg PO DAILY #30 tabs 07/09/24 Rx magnesium) tablet olanzapine 5 mg disintegrating 5 mg PO BID PRN aggitation #20 tabs 07/09/24 Rx tablet (Zyprexa Zydis) potassium chloride 20 mEq 20 meq PO DAILY #30 tabs 07/09/24 Rx tablet,extended release(part/cryst) Hospital Stay Data Consultations 07/04/24 14:30 ED Decision to Admit Stat Diagnostic Imagining Performed 07/08/24 00:15 CT head/brain wo con Stat 07/08/24 21:15 CT head/brain wo con Stat Reviewed imaging, laboratory and diagnostic studies. Pertinent findings as below. Electrolytes within normal range Creatinine 0.[address] shows chronic microvascular white matter disease, no acute infarcts or hemorrhage. Hemoglobin A1c 6.5% TSH 2.90 Urine culture no significant growth Pending Results Patient Have Any Pending Studies at Discharge: No Discharge Instructions Given to Patient (Per Discharging Provider) Call 911 and go to the Emergency Room if: * You have tightness or pain in your chest that does not go away with rest or Nitroglycerin * You are very short of breath even with rest Call your doctor if any of the following symptoms or problems start or get worse: * Shortness of breath or difficulty breathing * Wake up at night short of breath * Chest pain * Cough *More significant swelling of your hands, fee, or legs * More fatigued or tired with your normal activity * Palpitations - sudden fast heart beats WEIGHT * Weigh yourself every morning after using the bathroom. * Use the same scale. * Wear the same amount of clothing. * Write your weight down on your chart. * Call your doctor if you gain more than 2-3 pounds in 1-2 days. * Your weight today on discharge is 211 pounds MEDICATIONS * Use this discharge instruction sheet for instructions. * Take your medications at the time your doctor ordered. * Do not skip a dose of your medicines. * If you miss a dose of medicine, take as soon as possible, but DO NOT DOUBLE A DOSE. * Read your medicine information when you get home. * Know all of the side effects of your medicine. * Call your doctor's office if you have any side effects. * Be sure all of your doctors know what medicine and herbs you take (including cold, flu, and herbal medicine). * Pain Medicine: If you do not get relief from your pain, please call your doctor for help. Take the following with you to your follow-up doctor appointments: * Weight Chart * Medication List * List of questions Do not drink excessive alcohol, beer or wine. Home Health Attestation I certify that this patient is under my care and that I, or a physicians perinatal breastfeeding assistant working with me, had a face to-face encounter that meets the home health [id number] encounter requirements with this patient. The encounter with the patient was in whole, or in part, for the following medical condition, which is the primary reason for home health care (list medical condition): I certify that, based on my findings, the following services are medically necessary home health services: My clinical findings support the need for the above services because: Further, I certify that my clinical findings support that this patient is homebound (i.e. absences from home require considerable and taxing effort and are for medical reasons or hindu services or infrequently or of short duration when for other reasons) because: Certification for Home Health Services: Based on the above findings, I certify that this patient is confined to the home and needs intermittent [facility] care, physical therapy and/or speech therapy or continues to need occupational therapy. The patient is under my care, and I have initiated the establishment of the plan of care. This patient will be followed by a physician who will periodically review the plan of care. Total Time Total Time Spent Total Time Spent (In Minutes): 39
[2024-07-09 15:31] VITALS: BP 148/73
== END 2024-07-09 16:48 | disposition home health service (06) | DRG 291 ==
LOC: ED 12:58 → 2S 15:26 → MERGE 15:26 → 2S 16:18 → 2N 07-06 09:17

== ENCOUNTER 2024-11-02 21:55 | Inpatient (IN) ==
[2024-11-02 22:20] LABS: Hematocrit (blood only) 40.3 % (42.0-52.0); Hemoglobin 13.2 g/dl (14.0-18.0); Immature Granulocytes # (auto) 0.03 K/uL (0.01-0.20); Immature Granulocytes % (auto) 0.4 %; Mean Corpuscular Hemoglobin 29.7 pg (25.0-34.0); Mean Corpuscular Volume 90.6 fL (80.0-100.0); Platelet Count 150 K/uL (130-400); RDW Standard Deviation 49.2 fL (36.4-46.3); Red Blood Count 4.45 M/uL (4.70-6.10); White Blood Count 6.97 K/ul (4.8-10.8)
[2024-11-02 22:42] LABS: Alanine Aminotransferase 10.0 U/L (7-52); Albumin Globulin Ratio 1.2 (0.9-2); Alkaline Phosphatase 123.0 U/L (34-104); Anion Gap 11.0 (3-11); Bilirubin,Total 1.3 mg/dl (0.2-1.0); Blood Urea Nitrogen 14.0 mg/dl (6-23); Calcium 9.8 mg/dl (8.6-10.3); Carbon Dioxide 22.0 mmol/L (21-32); Chloride 104.0 mmol/L (98-107); Creatinine Clr Calc Pharmacy 69.1 ml/min; Globulin 3.3 gm/dl (2.5-4.0); Glucose 118.0 mg/dl (70-99(Fasting)); Potassium 3.8 mmol/L (3.5-5.1); Sodium 137.0 mmol/L (136-145); Total Protein 7.1 gm/dl (6.0-8.3)
[2024-11-02 23:44] LABS: INR 1.9 (0.9-1.1); Partial Thromboplastin Time 51 Seconds (21-31); Prothrombin Time 19.3 Seconds (9.0-12.0)
[2024-11-03] MEDS: ACETAMINOPHEN 1,000 MG/100 ML VIAL IV STA (00:54)
--- NOTE | 2024-11-03 01:57 | XRay Report ---
Exam(s): XR CXR 1 VIEW EXAM: XR Chest, 1 View CLINICAL HISTORY: Reason for exam: Chest pain, nonspecific. TECHNIQUE: Frontal view of the chest. COMPARISON: 07/04/2024 FINDINGS: Lungs: Underinflated lungs with bronchovascular crowding, exaggerated by body habitus and technique. No focal infiltrate or consolidation is seen. Pleural space: Unremarkable. No pneumothorax. Heart: The cardiac silhouette is mildly enlarged. Mediastinum: Unremarkable. Normal mediastinal contour. Bones/joints: Unremarkable. No acute fracture. Vasculature: The aortic arch is heavily calcified. IMPRESSION: 1. The cardiac silhouette is mildly enlarged. 2. Underinflated lungs with bronchovascular crowding, exaggerated by body habitus and technique. No focal infiltrate or consolidation is seen. Electronically signed by: Ángel Weaver MD 11/03/24 01:57 AM
--- NOTE | 2024-11-03 02:03 | XRay Report ---
Exam(s): XR LEFT ELBOW, 3+ views EXAM: XR Left Elbow Complete, 3 or More Views CLINICAL HISTORY: Reason for exam: fall. TECHNIQUE: Frontal, lateral and oblique views of the left elbow. COMPARISON: No relevant prior studies available. 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 Bone mineral density is normal. There is a 3 mm enthesophyte at the tip of the olecranon. Fat pads are nondisplaced. No elbow joint effusion is seen. No acute fracture or dislocation is seen. Soft tissues: Unremarkable. IMPRESSION: Mild degenerative changes. No acute fracture or dislocation is seen. Electronically signed by: Ángel Weaver MD 11/03/24 02:01 AM
--- NOTE | 2024-11-03 02:07 | Emergency Department Note ---
Impression & Plan Accidental fall, Left rib fracture, Abrasion of elbow, left, Anticoagulated ED Provider Note NAME: ZACH MOSS AGE: 89 SEX: Male INFORMANT: Patient and family ED PROVIDER(S): Richard Reynoso MD CHIEF COMPLAINT: Fall PLAN: Disposition: Admitted Outpatient prescription management: none Referral: None MEDICAL DECISION MAKING: Patient presented because of fall and chest discomfort. ECG revealed A-fib with PVCs and incomplete bundle-branch block. Blood work was obtained. Imaging ordered. Chest x-ray was unremarkable. Patient had an unremarkable head CT. On my interpretation patient had a left rib fracture but no evidence of pneumothorax. Patient was treated with IV Tylenol. Patient's INR is elevated.Cardiac troponin negative. Given the patient's age, anticoagulation and rib fracture further evaluation and management in the hospital is felt to be appropriate. [facility], Dr. Farah. Patient was evaluated in the ER and admitted for further management Care/management discussed with: manager ent Level of care consideration(s): After review of the information above and other included data, I feel the patient requires escalation of care to admission Triage Nursing notes: reviewed and agree them. Vital Signs: reviewed and remarkable for no significant abnormalities Additional History obtained from: none Chronic Medical/Social Conditions affecting care: Dementia, anticoagulation Prior/ Outside/ External records reviewed: none Differential Diagnosis: Fracture, dislocation, contusion, intra-abdominal, pneumothorax, intrathoracic, intracranial, neurologic, compartment syndrome, rhabdomyolysis, cardiac sources, as well as other pathologies. Diagnostics, independently interpreted by me: ECG: Twelve-lead ECG reveals atrial fibrillation with PVCs at 83 bpm. Incomplete right bundle branch block. Septal Q wave. No ST elevation. Cardiac Monitoring: Cardiac monitoring ordered by me: The patient was placed on continuous cardiac monitoring and observed. It revealed atrial fibrillation at 80 bpm. Medical decision rules: none Imaging studies: X-rays and CT scan as noted above. Left rib fracture. No pneumothorax. HPI: 89 year old Male arrives for evaluation of chest pain after a fall. Patient's states that he went out to get the mail and reportedly fell onto his left side. Patient complained of an abrasion at the left elbow. did not witness the fall. Patient does have dementia. Patient denied any pain at that time but then complained of left chest pain a few hours later. EMS was summoned. He was evaluated. He was given aspirin and brought to the ER. Patient is anticoagulated on Xarelto due to history of A-fib. Pt denies LOC, headache, visual changes, neck pain, breathing difficulties, nausea, vomiting, abdominal pain, back pain, numbness, weakness, open wounds, or other complaints. PAST MEDICAL HISTORY: See Below, atrial fibrillation, anticoagulation PAST SURGICAL HISTORY: See Below, SOCIAL HISTORY: See Below, HOME MEDICATIONS: See Below ALLERGIES: See Below VITALS: See Below PHYSICAL EXAMINATION: GENERAL: Awake, alert, [id number], in no distress HENT: Normocephalic, atraumatic. Oropharynx unremarkable. EYES: Normal conjunctiva. Sclera non-icteric. PERRLA. NECK: Inspection normal. Non-tender. Supple. No nuchal rigidity. FROM. No masses. RESPIRATORY: Clear to auscultation. No wheezes. No rales. Normal respiratory effort. CARDIAC: Normal rate. Irregular rhythm. Extremities warm and well perfused. Pulses equal. No JVD. GI: Soft, non-distended. No tenderness to palpation. No rebound or guarding. No masses. RECTAL: Deferred. MUSCULOSKELETAL: Right upper and both lower extremities are atraumatic. Chest examination reveals no tenderness. The back is symmetrical on inspection without obvious abnormality. There is no CVA tenderness to palpation. No joint edema. There is a moderate size skin tear over the lateral aspect of the left elbow. Good range of motion without obvious bony deformity or tenderness. LOWER EXTREMITIES: Calves are equal size bilaterally and non-tender. Tra 1+ ce edema. No discoloration. NEURO: Mildly demented sensorium. No sensory or motor deficits noted. SKIN: No rash or jaundice noted. 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 Metabolic alkalosis Electrolyte abnormality Cor pulmonale, acute Alzheimer's dementia Demand ischemia of myocardium (Acute) Chronic anticoagulation (Acute) Hypothyroidism Diabetes mellitus type 2, controlled, with complications Chronic atrial fibrillation (Acute) Pulmonary hypertension (Acute) 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 (Acute) Blood in stool Anemia Encounter for pre-operative examination Medical History (Updated 11/03/24 @ 02:07 by Richard Reynoso MD) Diabetes mellitus, type 2 Hypothyroidism Hearing deficit Hyperlipidemia Hypertension Surgical History (System 07/05/24 @ 09:14 by Mer[facility] Spence) History of arthroscopy of right shoulder History of appendectomy 1950--ruptured 48hrs, "wrapped around liver", approx 10in long incision History of colonoscopy History of tooth extraction all teeth History of bilateral cataract extraction Family History (System 07/05/24 @ 09:14 by [facility] Spence) Other No family history of adverse response to anesthesia Social History (System 07/05/24 @ 09:14 by Mer[facility] Spence) Smoking Status: Unknown if ever smoked Second Hand Exposure: No; Do You Dip or Chew Tobacco: No; Hx Alcohol Use: No Hx Substance Use: No Preferred Language: Lebanese Communication Ability: Effective Gate Tender Required: No Beliefs That Will Affect Care: None Current Living Situation: Spouse and Family Feels Safe at Home: Yes Assistive Devices: None Allergies Allergies Allergy/AdvReac Type Severity Reaction Status Date / Time No Known Allergies Allergy Verified 07/05/24 09:14 Home Meds Home Medications Medication Instructions Recorded Confirmed clotrimazole-betamethasone 1 1 applic topical BID PRN Rash 11/13/19 11/02/24 %-0.05 % topical cream levothyroxine 50 mcg tablet 50 mcg PO QAM 11/13/19 11/02/24 metformin 850 mg tablet 850 mg PO BIDM 11/13/19 11/02/24 niacin 500 mg tablet 500 mg PO QAM 11/13/19 11/02/24 atorvastatin 10 mg tablet 10 mg PO QDL 07/04/24 11/02/24 donepezil 10 mg tablet 10 mg PO QPM 07/04/24 11/02/24 ferrous sulfate 325 mg (65 mg 325 mg PO QDL 07/04/24 11/02/24 iron) tablet (FeroSul) metoprolol tartrate 50 mg tablet 50 mg PO BID 07/04/24 11/02/24 omeprazole 20 mg capsule,delayed 20 mg PO QDL 07/04/24 11/02/24 release rivaroxaban 20 mg tablet (Xarelto) 20 mg PO PM 07/04/24 11/02/24 magnesium oxide 400 mg (241.3 mg 400 mg PO QDL 11/02/24 11/02/24 magnesium) tablet olanzapine 5 mg disintegrating 5 mg PO .DAILY AT NOON 11/02/24 11/02/24 tablet spironolactone 25 mg tablet 25 mg PO QAM 11/03/24 11/03/24 Previous Rx's Medication Instructions Recorded furosemide 40 mg tablet 40 mg PO QAM #30 tabs 07/09/24 haloperidol 5 mg tablet 5 mg PO BID PRN agitation #20 tabs 07/09/24 Results & Data (ED) Vital Signs Vital Signs - 24 hr 11/02/24 22:00 11/02/24 22:07 11/02/24 22:07 Temperature 37 C Temperature Source Oral Pulse Rate 93 H 98 H Pulse Rate [Apical] Pulse Rhythm Irregular Pulse Strength Normal Respiratory Rate 25 H Respiratory Effort / Characteristics Non-Labored Spontaneous Respiratory Depth Normal Respiratory Pattern Regular Blood Pressure 148/100 H Blood Pressure [Right Arm] Blood Pressure Mean 116 Blood Pressure Mean [Right Arm] Blood Pressure Position Lying Blood Pressure Position [Right Arm] Pulse Oximetry 96 97 Oxygen Delivery Method Room Air Room Air Sepsis Recent Fever Within 48 Hours No Sepsis New/Unexplained Change in Mental Status No Sepsis Action Taken by Nursing No Action Required 11/02/24 22:07 11/02/24 22:14 11/02/24 22:14 Temperature Temperature Source Pulse Rate 85 Pulse Rate [Apical] Pulse Rhythm Regular Pulse Strength Respiratory Rate 24 Respiratory Effort / Characteristics Respiratory Depth Respiratory Pattern Blood Pressure Blood Pressure [Right Arm] 148/100 H Blood Pressure Mean Blood Pressure Mean [Right Arm] 116 Blood Pressure Position Blood Pressure Position [Right Arm] Lying Pulse Oximetry 96 97 Oxygen Delivery Method Room Air Room Air Room Air Sepsis Recent Fever Within 48 Hours Sepsis New/Unexplained Change in Mental Status Sepsis Action Taken by Nursing 11/02/24 23:00 11/03/24 00:00 11/03/24 01:00 Temperature Temperature Source Pulse Rate Pulse Rate [Apical] 86 70 93 H Pulse Rhythm Pulse Strength Respiratory Rate 16 16 16 Respiratory Effort / Characteristics Respiratory Depth Respiratory Pattern Blood Pressure Blood Pressure [Right Arm] 138/73 132/77 144/76 H Blood Pressure Mean Blood Pressure Mean [Right Arm] 94 95 98 Blood Pressure Position Blood Pressure Position [Right Arm] Pulse Oximetry 96 97 98 Oxygen Delivery Method Room Air Room Air Room Air Sepsis Recent Fever Within 48 Hours Sepsis New/Unexplained Change in Mental Status Sepsis Action Taken by Nursing 11/03/24 02:00 11/03/24 02:03 11/03/24 03:00 Temperature Temperature Source Pulse Rate 87 Pulse Rate [Apical] 97 H 105 H Pulse Rhythm Pulse Strength Respiratory Rate 18 16 Respiratory Effort / Characteristics Respiratory Depth Respiratory Pattern Blood Pressure Blood Pressure [Right Arm] 154/74 H 177/106 H Blood Pressure Mean Blood Pressure Mean [Right Arm] 100 129 Blood Pressure Position Blood Pressure Position [Right Arm] Pulse Oximetry 99 96 Oxygen Delivery Method Room Air Room Air Sepsis Recent Fever Within 48 Hours Sepsis New/Unexplained Change in Mental Status Sepsis Action Taken by Nursing 11/03/24 04:00 Temperature Temperature Source Pulse Rate Pulse Rate [Apical] 98 H Pulse Rhythm Pulse Strength Respiratory Rate 16 Respiratory Effort / Characteristics Respiratory Depth Respiratory Pattern Blood Pressure Blood Pressure [Right Arm] 165/99 H Blood Pressure Mean Blood Pressure Mean [Right Arm] 121 Blood Pressure Position Blood Pressure Position [Right Arm] Pulse Oximetry 97 Oxygen Delivery Method Room Air Sepsis Recent Fever Within 48 Hours Sepsis New/Unexplained Change in Mental Status Sepsis Action Taken by Nursing Laboratory Data 11/03/24 07:14 11/03/24 07:14 Lab Results 11/02/24 Range/Units 22:05 WBC 6.97 (4.8-10.8) K/ul RBC 4.45 L (4.70-6.10) M/uL Hgb 13.2 L (14.0-18.0) g/dl Hct 40.3 L (42.0-52.0) % MCV 90.6 (80.0-100.0) fL MCH 29.7 (25.0-34.0) pg MCHC 32.8 (32.0-36.0) g/dL RDW Std Deviation 49.2 H (36.4-46.3) fL RDW Coeff of Мария 14.9 H (11.5-14.5) % Plt Count 150 (130-400) K/uL MPV 9.9 (9.4-12.4) fL Immature Gran % (Auto) 0.4 % Neut % (Auto) 70.8 % Lymph % (Auto) 10.9 % [place] % (Auto) 11.3 % Eos % (Auto) 6.0 % Baso % (Auto) 0.6 % Neut # (Auto) 4.93 (1.40-6.50) K/uL Lymph # (Auto) 0.76 L (1.20-3.40) K/uL [place] # (Auto) 0.79 H (0.11-0.59) K/uL Eos # (Auto) 0.42 (0.00-0.50) K/uL Baso # (Auto) 0.04 (0.00-0.20) K/uL Immature Gran # (Auto) 0.03 (0.01-0.20) K/uL PT 19.3 H (9.0-12.0) Seconds INR 1.9 H (0.9-1.1) APTT 51 H (21-31) Seconds PTT Ratio 1.9 Sodium 137 (136-145) mmol/L Potassium 3.8 (3.5-5.1) mmol/L Chloride 104 (98-107) mmol/L Carbon Dioxide 22 (21-32) mmol/L Anion Gap 11 (3-11) BUN 14 (6-23) mg/dl Creatinine 0.82 (0.6-1.4) mg/dl Est Cr Clr Drug Dosing 69.1 ml/min eGFR 83.97 BUN/Creatinine Ratio 17.1 (10-20) Glucose 118 H (70-99(Fasting)) mg/dl Calcium 9.8 (8.6-10.3) mg/dl Total Bilirubin 1.3 H (0.2-1.0) mg/dl AST 22 (13-39) U/L ALT 10 (7-52) U/L Alkaline Phosphatase 123 H (34-104) U/L Troponin I High Sens 9.6 (0-20) pg/ml Total Protein 7.1 (6.0-8.3) gm/dl Albumin 3.8 (3.4-5.0) gm/dl Globulin 3.3 (2.5-4.0) gm/dl Albumin/Globulin Ratio 1.2 (0.9-2) Administered Medications Furosemide (Furosemide 40 Mg Tab) 40 mg PO QAM [facility] Stop: 12/03/24 08:59 Last Admin: 11/03/24 09:33 Dose: 40 mg Documented By: SKB Levothyroxine Sodium (Levothyroxine Sodium 50 Mcg Tablet) 50 mcg PO DAILYBB [facility] Stop: 12/03/24 06:59 Last Admin: 11/03/24 09:34 Dose: 50 mcg Documented By: PHEOBE Metoprolol Tartrate (Metoprolol Tartrate 50 Mg Tab) 50 mg PO BID [facility] Stop: 12/03/24 08:59 Last Admin: 11/03/24 09:33 Dose: 50 mg Documented By: PHOEBE Niacin (Niacin 500 Mg Tab) [facility] Stop: 12/03/24 08:59 Last Admin: 11/03/24 09:33 Dose: 500 mg Documented By: PHOEBE Spironolactone (Spironolactone 25 Mg Tab) 25 mg PO QAM [facility] Stop: 12/03/24 08:59 Last Admin: 11/03/24 09:33 Dose: 25 mg Documented By: PHOEBE Discontinued Medications Haloperidol Lactate (Haloperidol Lactate 5 Mg/Ml 1 Ml Vial) 2.5 mg IM NOW STA Stop: 11/03/24 04:50 Last Admin: 11/03/24 05:10 Dose: 2.5 mg Documented By: CHARLES Haloperidol Lactate (Haloperidol Lactate 5 Mg/Ml 1 Ml Vial) 2.5 mg IM NOW STA Stop: 11/03/24 05:23 Last Admin: 11/03/24 06:11 Dose: 2.5 mg Documented By: CHARLES Acetaminophen (Ofirmev) 1,000 mg in 100 mls @ 400 mls/hr IV NOW STA Stop: 11/03/24 00:17 Last Infusion: 11/03/24 01:10 Dose: Infused Documented By: Admin: 11/03/24 00:54 Dose: 400 mls/hr Documented By: CROW Lorazepam (Lorazepam 2 Mg/1 Ml Vial) 0.25 mg IV NOW STA Stop: 11/03/24 06:10 Last Admin: 11/03/24 06:26 Dose: 0.25 mg Documented By: MARK Olanzapine (Olanzapine 10 Mg/2.1 Ml Sdv) 2.5 mg IM NOW STA Stop: 11/03/24 02:30 Last Admin: 11/03/24 02:39 Dose: 2.5 mg Documented By: CHARLES Imaging Data Radiologist's Impression: Chest X-Ray 11/02/24 22:14 Exam(s): XR CXR 1 VIEW EXAM: XR Chest, 1 View CLINICAL HISTORY: Reason for exam: Chest pain, nonspecific. TECHNIQUE: Frontal view of the chest. COMPARISON: 07/04/2024 FINDINGS: Lungs: Underinflated lungs with bronchovascular crowding, exaggerated by body habitus and technique. No focal infiltrate or consolidation is seen. Pleural space: Unremarkable. No pneumothorax. Heart: The cardiac silhouette is mildly enlarged. Mediastinum: Unremarkable. Normal mediastinal contour. Bones/joints: Unremarkable. No acute fracture. Vasculature: The aortic arch is heavily calcified. IMPRESSION: 1. The cardiac silhouette is mildly enlarged. 2. Underinflated lungs with bronchovascular crowding, exaggerated by body habitus and technique. No focal infiltrate or consolidation is seen. Electronically signed by: Ángel Weaver MD 11/03/24 01:[address] 11/02/24 22:37 Exam(s): CT CHEST Without Contrast EXAM: CT Chest Without Intravenous Contrast CLINICAL HISTORY: Reason for exam: fall Left rib pain. TECHNIQUE: Axial computed tomography images of the chest without intravenous contrast. CTDI is 17.21 mGy and DLP is 598.83 mGy-cm. Automated exposure control was utilized for the study. A dose lowering technique was utilized adhering to the principles of ALARA. COMPARISON: No relevant prior studies available. FINDINGS: Lungs: Unremarkable. No mass. No consolidation. Pleural space: See below. Heart: The heart is mildly enlarged. There is moderate coronary calcification involving all coronary vessels. No pericardial effusion. Mediastinum: 10 cm hiatal hernia containing half of the stomach. Bones/joints: There is an acute slightly displaced fracture of the mid left 6th rib. No pneumothorax or pleural fluid collection is seen. Mild degenerative changes throughout the spine. No acute spinal fracture or destructive bone lesion is seen. Soft tissues: Unremarkable. Vasculature: The thoracic aorta is heavily calcified but nondilated. This is a noncontrast study. Lymph nodes: Unremarkable. No enlarged lymph nodes. IMPRESSION: 1. There is an acute slightly displaced fracture of the mid left 6th rib. No pneumothorax or pleural fluid collection is seen. 2. 10 cm hiatal hernia containing half of the stomach. Electronically signed by: Ángel Weaver MD 11/03/24 02:[address] 11/02/24 22:41 Exam(s): CT HEAD Without Contrast EXAM: CT Head Without Intravenous Contrast CLINICAL HISTORY: Reason for exam: Trauma. TECHNIQUE: Axial computed tomography images of the head/brain without intravenous contrast. CTDI is 38.17 mGy and DLP is 624.41 mGy-cm. Automated exposure control was utilized for the study. A dose lowering technique was utilized adhering to the principles of ALARA. COMPARISON: Prior head CT from July 08, 2024. FINDINGS: Brain: Unremarkable. No hemorrhage. No significant white matter disease. No edema. Ventricles: Unremarkable. No ventriculomegaly. Bones/joints: Unremarkable. No acute fracture. Soft tissues: Unremarkable. Sinuses: Unremarkable as visualized. No acute sinusitis. Mastoid air cells: Unremarkable as visualized. No mastoid effusion. IMPRESSION: No evidence of acute intracranial pathology. Electronically signed by: Huma Galvez MD 11/03/24 02:20 AM Elbow X-Ray 11/02/24 23:38 Exam(s): XR LEFT ELBOW, 3+ views EXAM: XR Left Elbow Complete, 3 or More Views CLINICAL HISTORY: Reason for exam: fall. TECHNIQUE: Frontal, lateral and oblique views of the left elbow. COMPARISON: No relevant prior studies available. 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 Bone mineral density is normal. There is a 3 mm enthesophyte at the tip of the olecranon. Fat pads are nondisplaced. No elbow joint effusion is seen. No acute fracture or dislocation is seen. Soft tissues: Unremarkable. IMPRESSION: Mild degenerative changes. No acute fracture or dislocation is seen. Electronically signed by: Ángel Weaver MD 11/03/24 02:01 AM Discharge Plan Visit Data Chief Complaint: Chest Pain Stated Complaint: Chest Pain, Fall ED Provider: Richard Reynoso Discharge Problem: Accidental fall, Left rib fracture, Abrasion of elbow, left, Anticoagulated Patient Disposition: Admitted As Inpatient Condition: Fair Discharge Instructions Interventions: ED Discharge Assessment Last Done: 11/03/24 06:25
--- NOTE | 2024-11-03 02:22 | CT Scan Report ---
Exam(s): CT HEAD Without Contrast EXAM: CT Head Without Intravenous Contrast CLINICAL HISTORY: Reason for exam: Trauma. TECHNIQUE: Axial computed tomography images of the head/brain without intravenous contrast. CTDI is 38.17 mGy and DLP is 624.41 mGy-cm. Automated exposure control was utilized for the study. A dose lowering technique was utilized adhering to the principles of ALARA. COMPARISON: Prior head CT from July 08, 2024. FINDINGS: Brain: Unremarkable. No hemorrhage. No significant white matter disease. No edema. Ventricles: Unremarkable. No ventriculomegaly. Bones/joints: Unremarkable. No acute fracture. Soft tissues: Unremarkable. Sinuses: Unremarkable as visualized. No acute sinusitis. Mastoid air cells: Unremarkable as visualized. No mastoid effusion. IMPRESSION: No evidence of acute intracranial pathology. Electronically signed by: Huma Galvez MD 11/03/24 02:20 AM
[2024-11-03] MEDS: HALOPERIDOL LACTATE 5 MG/ML 1 ML VIAL IM STA ×2 (05:10→06:11)
--- NOTE | 2024-11-03 05:11 | History & Physical Report ---
Date of Service November 03, 2024 Assessment & Plan (1) Left rib fracture: Plan: 89-year-old male with past medical history significant for hypothyroidism, dyslipidemia, chronic heart failure with preserved ejection fraction, cor pulmonale, longstanding persistent atrial fibrillation, hypertension, GERD, pyogenic granuloma of lip, Alzheimer's disease, anemia, history of CVA who lives at his home with his was brought in because of fall and found to have left sixth rib fracture. Patient is currently somewhat restless and sitting at the nursing station chatting with the staff. Received IM Zyprexa but did not helped much. He seems pleasant. Knows his name. Could tell his date of . But could not tell current dates and place. Seems talking tangentially. Denies headache. Denies chest pain. Denies back pain. Could not get much history from the patient. Hemodynamics are okay. As per ER patient went out to get the mail and reportedly fell onto his left side. Has an abrasion on left elbow and status post dressing in the ER. did not witness the fall. Patient seems denied any pain at the time of fall but then few hours later complained of left chest pain and EMS was summoned. He was given aspirin and brought to the hospital. Patient also on Xarelto for A-fib. Able to reach his son. As per son patient is DNR/DNI. 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 Left rib fracture Status post fall Abrasion to the left elbow status post dressing the ER Imaging studies showing left sixth rib fracture Currently seems pain under control IV Tylenol as needed Complaint of chest pain Possible from above Troponin okay Currently asymptomatic Will follow repeat EKG and repeat troponins Alzheimer's disease Dementia Continue home donepezil and olanzapine and Haldol as needed Received IV Zyprexa and IV Haldol and iv ativan so far on soft restraints one on one prn close monitor for delirium Chronic heart failure with preserved ejection fraction Cor pulmonale Continue home spironolactone and Lasix Monitor for volume overload Atrial fibrillation On metoprolol and Xarelto Hypertension On metoprolol succinate and diuretics Will monitor GERD On omeprazole Diabetes Hold metformin Sliding scale Will monitor Hypothyroidism On Synthyroid Hyperlipidemia On statin. 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 Patient is currently somewhat restless and sitting at the nursing station chatting with the staff. Received IM Zyprexa but did not helped much. He seems pleasant. Knows his name. Could tell his date of . But could not tell current dates and place. Seems talking tangentially. Denies headache. Denies chest pain. Denies back pain. Could not get much history from the patient. Hemodynamics are okay. As per ER patient went out to get the mail and reportedly fell onto his left side. Has an abrasion on left elbow and status post dressing in the ER. did not witness the fall. Patient seems denied any pain at the time of fall but then few hours later complained of left chest pain and EMS was summoned. He was given aspirin and brought to the hospital. Patient also on Xarelto for A-fib. Able to reach his son. As per son patient is DNR/DNI. 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 Past medical history. As mentioned above Past surgical history. No surgical history on file. Social history. . No smoking. No alcohol use. No drug use. Family history. Mother had colon cancer. Allergies Allergy/AdvReac Type Severity Reaction Status Date / Time No Known Allergies Allergy Verified 07/05/24 09:14 Home Medications Medication Instructions Recorded Confirmed Type clotrimazole-betamethasone 1 1 applic topical BID PRN Rash 11/13/19 11/02/24 History %-0.05 % topical cream levothyroxine 50 mcg tablet 50 mcg PO QAM 11/13/19 11/02/24 History metformin 850 mg tablet 850 mg PO BIDM 11/13/19 11/02/24 History niacin 500 mg tablet 500 mg PO QAM 11/13/19 11/02/24 History atorvastatin 10 mg tablet 10 mg PO QDL 07/04/24 11/02/24 History donepezil 10 mg tablet 10 mg PO QPM 07/04/24 11/02/24 History ferrous sulfate 325 mg (65 mg 325 mg PO QDL 07/04/24 11/02/24 History iron) tablet (FeroSul) metoprolol tartrate 50 mg tablet 50 mg PO BID 07/04/24 11/02/24 History omeprazole 20 mg capsule,delayed 20 mg PO QDL 07/04/24 11/02/24 History release rivaroxaban 20 mg tablet (Xarelto) 20 mg PO PM 07/04/24 11/02/24 History furosemide 40 mg tablet 40 mg PO QAM #30 tabs 07/09/24 11/02/24 Rx haloperidol 5 mg tablet 5 mg PO BID PRN agitation #20 tabs 07/09/24 11/02/24 Rx magnesium oxide 400 mg (241.3 mg 400 mg PO QDL 11/02/24 11/02/24 History magnesium) tablet olanzapine 5 mg disintegrating 5 mg PO .DAILY AT NOON 11/02/24 11/02/24 History tablet spironolactone 25 mg tablet 25 mg PO QAM 11/03/24 11/03/24 History Past Med/Surg History Problem List (Updated 11/03/24 @ 02:07 by Richard Reynoso MD) Anticoagulated (Acute) Abrasion of elbow, left (Acute) Left rib fracture (Acute) Accidental fall (Acute) 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 Metabolic alkalosis Electrolyte abnormality Cor pulmonale, acute Alzheimer's dementia Demand ischemia of myocardium (Acute) Chronic anticoagulation (Acute) Hypothyroidism Diabetes mellitus type 2, controlled, with complications Chronic atrial fibrillation (Acute) Pulmonary hypertension (Acute) 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 (Acute) Blood in stool Anemia Encounter for pre-operative examination Medical History (Updated 11/03/24 @ 02:07 by Richard Reynoso MD) Diabetes mellitus, type 2 Hypothyroidism Hearing deficit Hyperlipidemia Hypertension Surgical History (System 07/05/24 @ 09:14 by Mercy Spence) History of arthroscopy of right shoulder History of appendectomy 195--ruptured 48hrs, "wrapped around liver", approx 10in long incision History of colonoscopy History of tooth extraction all teeth History of bilateral cataract extraction Family History (System 07/05/24 @ 09:14 by Mercy Spence) Other No family history of adverse response to anesthesia Social History (System 07/05/24 @ 09:14 by Mercy Spence) Smoking Status: Unknown if ever smoked Second Hand Exposure: No; Do You Dip or Chew Tobacco: No; Hx Alcohol Use: No Hx Substance Use: No Preferred Language: Mauritanian Communication Ability: Effective 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 ENT- oropharynx clear Neck- supple, no JVD. Lungs- clear to auscultation no wheezing or crackles Heart- regular rhythm; no murmur, no gallop. Abdomen- normal bowel sounds, soft, nontender, no distension Extremities- moves extremities. left elbow in dressing Neuro- alert, oriented x 1; PERRL, no facial palsy; no dysarthria; moves extremities Results & Data Results & Data Vital Signs (Past 12 Hours) Vital Signs Temp Pulse Pulse Resp BP BP Pulse Ox 11/03/24 04:00 98 H 16 165/99 H 97 11/03/24 03:00 105 H 16 177/106 H 96 11/03/24 02:03 87 11/03/24 02:00 97 H 18 154/74 H 99 11/03/24 01:00 93 H 16 144/76 H 98 11/03/24 00:00 70 16 132/77 97 11/02/24 23:00 86 16 138/73 96 11/02/24 22:14 85 24 97 11/02/24 22:14 11/02/24 22:07 148/100 H 96 11/02/24 22:07 97 11/02/24 22:07 37 C 98 H 25 H 148/100 H 96 11/02/24 22:00 93 H O2 Del Method 11/03/24 04:00 Room Air 11/03/24 03:00 Room Air 11/03/24 02:03 11/03/24 02:00 Room Air 11/03/24 01:00 Room Air 11/03/24 00:00 Room Air 11/02/24 23:00 Room Air 11/02/24 22:14 Room Air 11/02/24 22:14 Room Air 11/02/24 22:07 Room Air 11/02/24 22:07 Room Air 11/02/24 22:07 Room Air 11/02/24 22:00 Diagnostic Findings Laboratory Results WBC 6.97 K/ul (4.8-10.8) 11/02/24 22:05 RBC 4.45 M/uL (4.70-6.10) L 11/02/24 22:05 Hgb 13.2 g/dl (14.0-18.0) L 11/02/24 22:05 Hct 40.3 % (42.0-52.0) L 11/02/24 22:05 MCV 90.6 fL (80.0-100.0) 11/02/24 22:05 MCH 29.7 pg (25.0-34.0) 11/02/24 22:05 MCHC 32.8 g/dL (32.0-36.0) 11/02/24 22:05 RDW Std Deviation 49.2 fL (36.4-46.3) H 11/02/24 22:05 RDW Coeff of Мария 14.9 % (11.5-14.5) H 11/02/24 22:05 Plt Count 150 K/uL (130-400) 11/02/24 22:05 MPV 9.9 fL (9.4-12.4) 11/02/24 22:05 Immature Gran % (Auto) 0.4 % 11/02/24 22:05 Neut % (Auto) 70.8 % 11/02/24 22:05 Lymph % (Auto) 10.9 % 11/02/24 22:05 [place] % (Auto) 11.3 % 11/02/24 22:05 Eos % (Auto) 6.0 % 11/02/24 22:05 Baso % (Auto) 0.6 % 11/02/24 22:05 Neut # (Auto) 4.93 K/uL (1.40-6.50) 11/02/24 22:05 Lymph # (Auto) 0.76 K/uL (1.20-3.40) L 11/02/24 22:05 [place] # (Auto) 0.79 K/uL (0.11-0.59) H 11/02/24 22:05 Eos # (Auto) 0.42 K/uL (0.00-0.50) 11/02/24 22:05 Baso # (Auto) 0.04 K/uL (0.00-0.20) 11/02/24 22:05 Immature Gran # (Auto) 0.03 K/uL (0.01-0.20) 11/02/24 22:05 PT 19.3 Seconds (9.0-12.0) H 11/02/24 22:05 INR 1.9 (0.9-1.1) H 11/02/24 22:05 APTT 51 Seconds (21-31) H 11/02/24 22:05 PTT Ratio 1.9 11/02/24 22:05 Sodium 137 mmol/L (136-145) 11/02/24 22:05 Potassium 3.8 mmol/L (3.5-5.1) 11/02/24 22:05 Chloride 104 mmol/L (98-107) 11/02/24 22:05 Carbon Dioxide 22 mmol/L (21-32) 11/02/24 22:05 Anion Gap 11 (3-11) 11/02/24 22:05 BUN 14 mg/dl (6-23) 11/02/24 22:05 Creatinine 0.82 mg/dl (0.6-1.4) 11/02/24 22:05 Est Cr Clr Drug Dosing 69.1 ml/min 11/02/24 22:05 eGFR 83.97 11/02/24 22:05 BUN/Creatinine Ratio 17.1 (10-20) 11/02/24 22:05 Glucose 118 mg/dl (70-99(Fasting)) H 11/02/24 22:05 Calcium 9.8 mg/dl (8.6-10.3) 11/02/24 22:05 Total Bilirubin 1.3 mg/dl (0.2-1.0) H 11/02/24 22:05 AST 22 U/L (13-39) 11/02/24 22:05 ALT 10 U/L (7-52) 11/02/24 22:05 Alkaline Phosphatase 123 U/L (34-104) H 11/02/24 22:05 Troponin I High Sens 9.6 pg/ml (0-20) 11/02/24 22:05 Total Protein 7.1 gm/dl (6.0-8.3) 11/02/24 22:05 Albumin 3.8 gm/dl (3.4-5.0) 11/02/24 22:05 Globulin 3.3 gm/dl (2.5-4.0) 11/02/24 22:05 Albumin/Globulin Ratio 1.2 (0.9-2) 11/02/24 22:05 Impressions Chest X-Ray 11/02/24 22:14 Exam(s): XR CXR 1 VIEW EXAM: XR Chest, 1 View CLINICAL HISTORY: Reason for exam: Chest pain, nonspecific. TECHNIQUE: Frontal view of the chest. COMPARISON: 07/04/2024 FINDINGS: Lungs: Underinflated lungs with bronchovascular crowding, exaggerated by body habitus and technique. No focal infiltrate or consolidation is seen. Pleural space: Unremarkable. No pneumothorax. Heart: The cardiac silhouette is mildly enlarged. Mediastinum: Unremarkable. Normal mediastinal contour. Bones/joints: Unremarkable. No acute fracture. Vasculature: The aortic arch is heavily calcified. IMPRESSION: 1. The cardiac silhouette is mildly enlarged. 2. Underinflated lungs with bronchovascular crowding, exaggerated by body habitus and technique. No focal infiltrate or consolidation is seen. Electronically signed by: Ángel Weaver MD 11/03/24 01:[address] 11/02/24 22:37 Exam(s): CT CHEST Without Contrast EXAM: CT Chest Without Intravenous Contrast CLINICAL HISTORY: Reason for exam: fall Left rib pain. TECHNIQUE: Axial computed tomography images of the chest without intravenous contrast. CTDI is 17.21 mGy and DLP is 598.83 mGy-cm. Automated exposure control was utilized for the study. A dose lowering technique was utilized adhering to the principles of ALARA. COMPARISON: No relevant prior studies available. FINDINGS: Lungs: Unremarkable. No mass. No consolidation. Pleural space: See below. Heart: The heart is mildly enlarged. There is moderate coronary calcification involving all coronary vessels. No pericardial effusion. Mediastinum: 10 cm hiatal hernia containing half of the stomach. Bones/joints: There is an acute slightly displaced fracture of the mid left 6th rib. No pneumothorax or pleural fluid collection is seen. Mild degenerative changes throughout the spine. No acute spinal fracture or destructive bone lesion is seen. Soft tissues: Unremarkable. Vasculature: The thoracic aorta is heavily calcified but nondilated. This is a noncontrast study. Lymph nodes: Unremarkable. No enlarged lymph nodes. IMPRESSION: 1. There is an acute slightly displaced fracture of the mid left 6th rib. No pneumothorax or pleural fluid collection is seen. 2. 10 cm hiatal hernia containing half of the stomach. Electronically signed by: Ángel Weaver MD 11/03/24 02:[address] 11/02/24 22:41 Exam(s): CT HEAD Without Contrast EXAM: CT Head Without Intravenous Contrast CLINICAL HISTORY: Reason for exam: Trauma. TECHNIQUE: Axial computed tomography images of the head/brain without intravenous contrast. CTDI is 38.17 mGy and DLP is 624.41 mGy-cm. Automated exposure control was utilized for the study. A dose lowering technique was utilized adhering to the principles of ALARA. COMPARISON: Prior head CT from July 08, 2024. FINDINGS: Brain: Unremarkable. No hemorrhage. No significant white matter disease. No edema. Ventricles: Unremarkable. No ventriculomegaly. Bones/joints: Unremarkable. No acute fracture. Soft tissues: Unremarkable. Sinuses: Unremarkable as visualized. No acute sinusitis. Mastoid air cells: Unremarkable as visualized. No mastoid effusion. IMPRESSION: No evidence of acute intracranial pathology. Electronically signed by: Huma Galvez MD 11/03/24 02:20 AM Elbow X-Ray 11/02/24 23:38 Exam(s): XR LEFT ELBOW, 3+ views EXAM: XR Left Elbow Complete, 3 or More Views CLINICAL HISTORY: Reason for exam: fall. TECHNIQUE: Frontal, lateral and oblique views of the left elbow. COMPARISON: No relevant prior studies available. 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 Bone mineral density is normal. There is a 3 mm enthesophyte at the tip of the olecranon. Fat pads are nondisplaced. No elbow joint effusion is seen. No acute fracture or dislocation is seen. Soft tissues: Unremarkable. IMPRESSION: Mild degenerative changes. No acute fracture or dislocation is seen. Electronically signed by: Ángel Weaver MD 11/03/24 02:01 AM ECG Additional Comments: ECG. Atrial fibrillation with PVCs rate of 83. Incomplete right bundle branch block. QTc 474. Code Status & VTE Plan VTE Prophylaxis Plan VTE Prophylaxis will be ordered: Yes
[2024-11-03] MEDS ORDERED: NITROGLYCERIN SL 0.4 MG/TAB TAB SL PRN (06:25)
[2024-11-03] MEDS ORDERED: CLOTRIMAZOLE/BETAMETHASONE CR 15 GM TUBE EXT PRN (06:25)
[2024-11-03] MEDS ORDERED: ACETAMINOPHEN 1,000 MG/100 ML VIAL IV PRN (06:25)
[2024-11-03] MEDS ORDERED: POLYETHYLENE (MIRALAX) 17 GM PACK PO PRN (06:25)
[2024-11-03 07:40] LABS: Hematocrit (blood only) 39.6 % (42.0-52.0); Hemoglobin 12.9 g/dl (14.0-18.0); Immature Granulocytes # (auto) 0.03 K/uL (0.01-0.20); Immature Granulocytes % (auto) 0.4 %; Mean Corpuscular Hemoglobin 29.9 pg (25.0-34.0); Mean Corpuscular Volume 91.9 fL (80.0-100.0); Platelet Count 138 K/uL (130-400); RDW Standard Deviation 49.4 fL (36.4-46.3); Red Blood Count 4.31 M/uL (4.70-6.10); White Blood Count 7.63 K/ul (4.8-10.8)
[2024-11-03 07:56] LABS: Anion Gap 20.0 (3-11); Blood Urea Nitrogen 16.0 mg/dl (6-23); Calcium 9.7 mg/dl (8.6-10.3); Carbon Dioxide 20.0 mmol/L (21-32); Chloride 100.0 mmol/L (98-107); Creatinine Clr Calc Pharmacy 68.2 ml/min; Glucose 129.0 mg/dl (70-99(Fasting)); Magnesium 1.6 mg/dl (1.7-2.4); Potassium 3.3 mmol/L (3.5-5.1); Sodium 140.0 mmol/L (136-145)
[2024-11-03 08:08] LABS: INR 1.6 (0.9-1.1); Prothrombin Time 17.1 Seconds (9.0-12.0)
[2024-11-03] MEDS: FUROSEMIDE 40 MG TAB PO SCH (09:33)
[2024-11-03] MEDS: SPIRONOLACTONE 25 MG TAB PO SCH (09:33)
[2024-11-03] MEDS: NIACIN 500 MG TAB PO SCH (09:33)
[2024-11-03] MEDS: METOPROLOL TARTRATE 50 MG TAB PO SCH (09:33)
[2024-11-03] MEDS: LEVOTHYROXINE SODIUM 50 MCG TABLET PO SCH (09:34)
[2024-11-03 11:31] LABS: Appearance Urine Clear (Clear); Bacteria Urine Automated None Seen (None Seen); Cast Urine Automated 0-2 /lpf (0-2); Epithelial Cell Urine Auto 0-2 /hpf (0-2); Glucose Urine UA Negative (Negative); WBC Urine Automated 0-5 /hpf (0-5)
[2024-11-03] MEDS: MAGNESIUM OXIDE 400 MG TAB PO SCH (11:59)
[2024-11-03] MEDS: FERROUS SULFATE 325 MG TAB PO SCH (11:59)
[2024-11-03] MEDS: ATORVASTATIN 10 MG TAB PO SCH (11:59)
--- NOTE | 2024-11-03 12:57 | Communication Note ---
Date of Service: November 03, 2024 Patient seen and examined He is currently alert and oriented to person only, eating lunch No complaints Continue one to one. Redirect as needed PT/OT eval Other plans as detailed in H/P this AM
[2024-11-03] MEDS: RIVAROXABAN 20 MG TAB PO SCH (16:57)
[2024-11-03] MEDS: DONEPEZIL HCL 10 MG TAB PO SCH (19:51)
[2024-11-04 07:56] LABS: Hematocrit (blood only) 37.4 % (42.0-52.0); Hemoglobin 12.8 g/dl (14.0-18.0); Mean Corpuscular Hemoglobin 30.3 pg (25.0-34.0); Mean Corpuscular Volume 88.4 fL (80.0-100.0); Platelet Count 142 K/uL (130-400); RDW Standard Deviation 46.3 fL (36.4-46.3); Red Blood Count 4.23 M/uL (4.70-6.10); White Blood Count 6.84 K/ul (4.8-10.8)
[2024-11-04 08:19] LABS: Anion Gap 6.0 (3-11); Blood Urea Nitrogen 15.0 mg/dl (6-23); Calcium 9.4 mg/dl (8.6-10.3); Carbon Dioxide 29.0 mmol/L (21-32); Chloride 102.0 mmol/L (98-107); Creatinine Clr Calc Pharmacy 73.3 ml/min; Glucose 122.0 mg/dl (70-99(Fasting)); Magnesium 1.8 mg/dl (1.7-2.4); Potassium 3.6 mmol/L (3.5-5.1); Sodium 137.0 mmol/L (136-145)
--- NOTE | 2024-11-04 09:36 | Hospitalist Progress Note ---
Date of Service November 04, 2024 Assessment & Plan (1) Left rib fracture: Plan: 89-year-old male with past medical history significant for hypothyroidism, dyslipidemia, chronic heart failure with preserved ejection fraction, cor pulmonale, longstanding persistent atrial fibrillation, hypertension, GERD, pyogenic granuloma of lip, Alzheimer's disease, anemia, history of CVA who lives at his home with his was brought in because of fall and found to have left sixth rib fracture. Per ER, patient went out to get the mail and reportedly fell onto his left side. Has an abrasion on left elbow and status post dressing in the ER. did not witness the fall. Patient seems denied any pain at the time of fall but then few hours later complained of left chest pain and EMS was summoned. He was given aspirin and brought to the hospital. Patient also on Xarelto for A-fib. As per son patient is DNR/DNI. 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 Fall Left rib fracture Abrasion to the left elbow status post dressing the ER Reviewed imaging. Has left sixth rib fracture Currently reports no pain Tylenol as needed Awaiting PT/OT Mild elevated trop likely due to demand. Alzheimer's disease Dementia Continue home donepezil and olanzapine and Haldol as needed Continue one to one Redirect as needed Chronic heart failure with preserved ejection fraction Cor pulmonale Continue home spironolactone and Lasix Atrial fibrillation On metoprolol and Xarelto Hypertension On metoprolol succinate and diuretics Will monitor GERD On omeprazole Diabetes Hold metformin Sliding scale Will monitor Hypothyroidism On Synthroid Hyperlipidemia On statin. History of CVA On statin and Xarelto DVT prophylaxis:On Xarelto CODE STATUS DNR/DNI Call to son went to [facility]. Will try again later I spent a total of 50 minutes coordinating, documenting and providing care for this patient excluding time spent in performance of separately billed services Admission and Anticipated Discharge Date Admission Date: November 03, 2024 Subjective Patient seen and examined Denied any pain He denied any complaints today ROS limited due to cognitive impairment Physical Exam Constitutional: + well hydrated; no acute distress Eyes: PERRL, conjunctivae normal, anicteric sclerae ENMT: external ear and nose normal, oropharynx normal Respiratory: normal respiratory effort, lungs clear to auscultation Cardiovascular: Rate/Rhythm: + irregularly irregular Gastrointestinal (Abdomen): normal bowel sounds, soft, nontender, no hepatosplenomegaly Musculoskeletal: +pedal edema Neurologic: PERRL, EOMI Alert and oriented to person only. Cooperative Results & Data Results & Data Vital Signs (Past 12 Hours) Vital Signs Temp Pulse Pulse Resp BP Pulse Ox O2 Del Method 11/04/24 08:00 74 11/04/24 07:13 36.6 C 92 H 20 155/99 H 94 Room Air 11/03/24 22:45 36.7 C 117 H 18 151/79 H 94 Room Air 11/03/24 22:42 91 H Laboratory Results Abnormal lab results 11/03/24 11/03/24 11/03/24 Range/Units 10:33 12:53 19:28 RBC (4.70-6.10) M/uL Hgb (14.0-18.0) g/dl Hct (42.0-52.0) % Glucose (70-99(Fasting)) mg/dl Troponin I High Sens 26.9 H D 31.6 H (0-20) pg/ml Urine Ketones 1+ H (Negative) Urine Blood 1+ H (Negative) Urine RBC (Auto) 3-5 H (0-2) /hpf 11/04/24 Range/Units 07:28 RBC 4.23 L (4.70-6.10) M/uL Hgb 12.8 L (14.0-18.0) g/dl Hct 37.4 L (42.0-52.0) % Glucose 122 H (70-99(Fasting)) mg/dl Troponin I High Sens (0-20) pg/ml Urine Ketones (Negative) Urine Blood (Negative) Urine RBC (Auto) (0-2) /hpf
[2024-11-05 07:22] LABS: Anion Gap 5.0 (3-11); Blood Urea Nitrogen 19.0 mg/dl (6-23); Calcium 9.1 mg/dl (8.6-10.3); Carbon Dioxide 29.0 mmol/L (21-32); Chloride 104.0 mmol/L (98-107); Creatinine Clr Calc Pharmacy 67.0 ml/min; Glucose 106.0 mg/dl (70-99(Fasting)); Magnesium 1.8 mg/dl (1.7-2.4); Potassium 3.1 mmol/L (3.5-5.1); Sodium 138.0 mmol/L (136-145)
--- NOTE | 2024-11-05 08:52 | Hospitalist Progress Note ---
Date of Service November 05, 2024 Assessment & Plan (1) Left rib fracture: Plan: 89-year-old male with past medical history significant for hypothyroidism, dyslipidemia, chronic heart failure with preserved ejection fraction, cor pulmonale, longstanding persistent atrial fibrillation, hypertension, GERD, pyogenic granuloma of lip, Alzheimer's disease, anemia, history of CVA who lives at his home with his was brought in because of fall and found to have left sixth rib fracture. Per ER, patient went out to get the mail and reportedly fell onto his left side. Has an abrasion on left elbow and status post dressing in the ER. did not witness the fall. Patient seems denied any pain at the time of fall but then few hours later complained of left chest pain and EMS was summoned. He was given aspirin and brought to the hospital. Patient also on Xarelto for A-fib. As per son patient is DNR/DNI. 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 Fall Left rib fracture Abrasion to the left elbow status post dressing the ER Reviewed imaging. Has left sixth rib fracture No pain Tylenol as needed PT recommended rehab. CM notified Mild elevated trop likely due to demand. Alzheimer's disease Dementia Continue home donepezil and olanzapine and Haldol as needed Continue one to one Redirect as needed Chronic heart failure with preserved ejection fraction Cor pulmonale Continue home spironolactone and Lasix Hypokalemia Replete with po KCl Recheck potassium Atrial fibrillation On metoprolol and Xarelto Hypertension On metoprolol succinate and diuretics Will monitor GERD On omeprazole Diabetes Hold metformin Sliding scale Will monitor Hypothyroidism On Synthroid Hyperlipidemia On statin. History of CVA On statin and Xarelto DVT prophylaxis:On Xarelto CODE STATUS DNR/DNI Called son and updated him I spent a total of 50 minutes coordinating, documenting and providing care for this patient excluding time spent in performance of separately billed services Admission and Anticipated Discharge Date Admission Date: November 03, 2024 Subjective Patient seen and examined He is awake, alert and oriented to person and place today Denied any complaints Physical Exam Constitutional: + well hydrated; no acute distress Eyes: PERRL, conjunctivae normal, anicteric sclerae ENMT: external ear and nose normal, oropharynx normal Respiratory: normal respiratory effort, lungs clear to auscultation Cardiovascular: Rate/Rhythm: + irregularly irregular Gastrointestinal (Abdomen): normal bowel sounds, soft, nontender, no hepatosplenomegaly Musculoskeletal: +pedal edema Neurologic: PERRL EOMI. Cooperative Alert and oriented to person and place Results & Data Results & Data Vital Signs (Past 12 Hours) Vital Signs Temp Pulse Pulse Resp BP Pulse Ox O2 Del Method 11/05/24 07:28 58 L 11/05/24 07:21 36.4 C L 77 18 114/67 97 Room Air 11/05/24 02:48 36.4 C L 78 18 105/70 96 Room Air 11/04/24 21:54 80 11/04/24 21:00 Room Air Laboratory Results Abnormal lab results 11/05/24 Range/Units 06:33 Potassium 3.1 L (3.5-5.1) mmol/L BUN/Creatinine Ratio 23.2 H (10-20) Glucose 106 H (70-99(Fasting)) mg/dl
[2024-11-05] MEDS: POTASSIUM CHLORIDE CRTAB 20 MEQ TABCR PO STA (09:27)
--- NOTE | 2024-11-05 12:02 | Electrocardiogram Report ---
Test Reason : Blood Pressure : */* mmHG Vent. Rate : 75 BPM Atrial Rate : * BPM P-R Int : * ms QRS Dur : 92 ms QT Int : 442 ms P-R-T Axes : * -28 43 degrees QTcB Int : 493 ms Atrial fibrillation with a competing junctional pacemaker Incomplete right bundle branch block Anteroseptal infarct , age undetermined Abnormal ECG When compared with ECG of 04-Nov-2024 04:48, (unconfirmed) Incomplete right bundle branch block is now Present Confirmed by Nakul Peterson ([id number]) on 11/05/2024 12:01:24 PM Referred By: REFERRED SELF Confirmed By: Nakul Peterson
--- NOTE | 2024-11-05 13:17 | Electrocardiogram Report ---
Test Reason : Blood Pressure : */* mmHG Vent. Rate : 77 BPM Atrial Rate : * BPM P-R Int : * ms QRS Dur : 100 ms QT Int : 436 ms P-R-T Axes : * -28 -3 degrees QTcB Int : 493 ms Atrial fibrillation with premature ventricular or aberrantly conducted complexes Abnormal ECG When compared with ECG of 02-Nov-2024 22:01, (unconfirmed) No significant change was found Confirmed by Nakul Peterson ([id number]) on 11/05/2024 1:17:12 PM Referred By: REFERRED SELF Confirmed By: Nakul Peterson
--- NOTE | 2024-11-05 22:10 | Electrocardiogram Report ---
Test Reason : Blood Pressure : */* mmHG Vent. Rate : 83 BPM Atrial Rate : * BPM P-R Int : * ms QRS Dur : 100 ms QT Int : 404 ms P-R-T Axes : * -20 40 degrees QTcB Int : 474 ms Atrial fibrillation with premature ventricular or aberrantly conducted complexes Low voltage QRS Incomplete right bundle branch block Septal infarct , age undetermined Abnormal ECG No previous ECGs available Confirmed by Nakul Peterson ([id number]) on 11/05/2024 10:10:08 PM Referred By: REFERRED SELF Confirmed By: Nakul Peterson
[2024-11-06 07:49] LABS: Anion Gap 6.0 (3-11); Blood Urea Nitrogen 18.0 mg/dl (6-23); Calcium 9.0 mg/dl (8.6-10.3); Carbon Dioxide 27.0 mmol/L (21-32); Chloride 106.0 mmol/L (98-107); Creatinine Clr Calc Pharmacy 73.3 ml/min; Glucose 102.0 mg/dl (70-99(Fasting)); Magnesium 1.8 mg/dl (1.7-2.4); Potassium 3.3 mmol/L (3.5-5.1); Sodium 139.0 mmol/L (136-145)
--- NOTE | 2024-11-06 13:08 | Hospitalist Progress Note ---
Date of Service November 06, 2024 Assessment & Plan (1) Left rib fracture: Plan: 89-year-old male with past medical history significant for hypothyroidism, dyslipidemia, chronic heart failure with preserved ejection fraction, cor pulmonale, longstanding persistent atrial fibrillation, hypertension, GERD, pyogenic granuloma of lip, Alzheimer's disease, anemia, history of CVA who lives at his home with his was brought in because of fall and found to have left sixth rib fracture. Per ER, patient went out to get the mail and reportedly fell onto his left side. Has an abrasion on left elbow and status post dressing in the ER. did not witness the fall. Patient seems denied any pain at the time of fall but then few hours later complained of left chest pain and EMS was summoned. He was given aspirin and brought to the hospital. Patient also on Xarelto for A-fib. As per son patient is DNR/DNI. 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 Fall Left rib fracture Abrasion to the left elbow status post dressing the ER Reviewed imaging. Has left sixth rib fracture No pain Tylenol as needed PT recommended rehab. Mild elevated trop likely due to demand. Alzheimer's disease Dementia Continue home donepezil and olanzapine and Haldol as needed Continue one to one Redirect as needed Chronic heart failure with preserved ejection fraction Cor pulmonale Continue home spironolactone and Lasix Hypokalemia Replete with po KCl and monitor Atrial fibrillation On metoprolol and Xarelto Hypertension On metoprolol succinate and diuretics Will monitor GERD On omeprazole Diabetes Hold metformin Sliding scale Will monitor Hypothyroidism On Synthroid Hyperlipidemia On statin. History of CVA On statin and Xarelto DVT prophylaxis:On Xarelto CODE STATUS DNR/DNI CM notified me that son wants referral to [facility] I spent a total of 35 minutes coordinating, documenting and providing care for this patient excluding time spent in performance of separately billed services Admission and Anticipated Discharge Date Admission Date: November 03, 2024 Subjective Patient seen and examined Denied any complaints Physical Exam Constitutional: + well hydrated; no acute distress Eyes: PERRL, conjunctivae normal, anicteric sclerae ENMT: external ear and nose normal, oropharynx normal Respiratory: normal respiratory effort, lungs clear to auscultation Cardiovascular: Rate/Rhythm: + irregularly irregular Gastrointestinal (Abdomen): normal bowel sounds, soft, nontender, no hepatosplenomegaly Musculoskeletal: +trace pedal edema Neurologic: PERRL, EOMI, accommodation nl, no face palsy, no dysarthria Psychiatric: Alert and oriented to person only Results & Data Results & Data Vital Signs (Past 12 Hours) Vital Signs Temp Pulse Pulse Resp BP BP Pulse Ox 11/06/24 10:29 36.5 C 78 17 97/61 L 95 11/06/24 09:00 79 11/06/24 09:00 11/06/24 06:57 36.5 C 86 16 100/62 91 11/06/24 04:00 36.5 C 78 16 101/59 L 93 O2 Del Method 11/06/24 10:29 Room Air 11/06/24 09:00 11/06/24 09:00 Room Air 11/06/24 06:57 Room Air 11/06/24 04:00 Room Air Laboratory Results Abnormal lab results 11/06/24 Range/Units 06:46 Potassium 3.3 L (3.5-5.1) mmol/L BUN/Creatinine Ratio 24.0 H (10-20) Glucose 102 H (70-99(Fasting)) mg/dl
[2024-11-06] MEDS: POTASSIUM CHLORIDE CRTAB 20 MEQ TABCR PO STA (14:09)
[2024-11-06] MEDS: MELATONIN 3 MG TAB PO PRN (23:04)
[2024-11-07 09:19] LABS: Anion Gap 6.0 (3-11); Blood Urea Nitrogen 17.0 mg/dl (6-23); Calcium 9.2 mg/dl (8.6-10.3); Carbon Dioxide 28.0 mmol/L (21-32); Chloride 105.0 mmol/L (98-107); Creatinine Clr Calc Pharmacy 71.4 ml/min; Glucose 114.0 mg/dl (70-99(Fasting)); Magnesium 1.7 mg/dl (1.7-2.4); Potassium 3.5 mmol/L (3.5-5.1); Sodium 139.0 mmol/L (136-145)
--- NOTE | 2024-11-07 12:13 | Hospitalist Progress Note ---
Date of Service November 07, 2024 Assessment & Plan (1) Left rib fracture: Plan: 89-year-old male with past medical history significant for hypothyroidism, dyslipidemia, chronic heart failure with preserved ejection fraction, cor pulmonale, longstanding persistent atrial fibrillation, hypertension, GERD, pyogenic granuloma of lip, Alzheimer's disease, anemia, history of CVA who lives at his home with his was brought in because of fall and found to have left sixth rib fracture. Per ER, patient went out to get the mail and reportedly fell onto his left side. Has an abrasion on left elbow and status post dressing in the ER. did not witness the fall. Patient seems denied any pain at the time of fall but then few hours later complained of left chest pain and EMS was summoned. He was given aspirin and brought to the hospital. Patient also on Xarelto for A-fib. As per son patient is DNR/DNI. 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 Fall Left rib fracture Abrasion to the left elbow status post dressing the ER Reviewed imaging. Has left sixth rib fracture No pain Tylenol as needed PT recommended rehab. Mild elevated trop likely due to demand ischemia. Alzheimer's disease Dementia Continue home donepezil and olanzapine and Haldol as needed Continue one to one Redirect as needed Chronic heart failure with preserved ejection fraction Cor pulmonale Continue home spironolactone and Lasix Hypokalemia Replete with po KCl and monitor Atrial fibrillation On metoprolol and Xarelto Hypertension On metoprolol succinate and diuretics Will monitor GERD On omeprazole Diabetes Hold [employer]IAN metformin Sliding scale Will monitor Hypothyroidism On Synthroid Hyperlipidemia On statin. History of CVA On statin and Xarelto DVT prophylaxis:On Xarelto CODE STATUS DNR/DNI CM working on placement I spent a total of 35 minutes coordinating, documenting and providing care for this patient excluding time spent in performance of separately billed services Admission and Anticipated Discharge Date Admission Date: November 03, 2024 Subjective Patient seen and examined Denied any complaints on ROS Physical Exam Constitutional: + well hydrated; no acute distress Eyes: PERRL, conjunctivae normal, anicteric sclerae ENMT: external ear and nose normal, oropharynx normal Respiratory: normal respiratory effort, lungs clear to auscultation Cardiovascular: Rate/Rhythm: + irregularly irregular Gastrointestinal (Abdomen): normal bowel sounds, soft, nontender, no hepatosplenomegaly Musculoskeletal: Trace pedal edema Neurologic: PERRL, EOMI, accommodation nl, no face palsy, no dysarthria Psychiatric: Alert and oriented to person only. Cooperative Results & Data Results & Data Vital Signs (Past 12 Hours) Vital Signs Temp Pulse Pulse Resp BP Pulse Ox O2 Del Method 11/07/24 07:17 36.5 C 88 80 16 105/62 97 Room Air Laboratory Results Abnormal lab results 11/07/24 Range/Units 08:27 BUN/Creatinine Ratio 22.1 H (10-20) Glucose 114 H (70-99(Fasting)) mg/dl
[2024-11-08 06:48] LABS: Anion Gap 7.0 (3-11); Blood Urea Nitrogen 13.0 mg/dl (6-23); Calcium 9.6 mg/dl (8.6-10.3); Carbon Dioxide 27.0 mmol/L (21-32); Chloride 105.0 mmol/L (98-107); Creatinine Clr Calc Pharmacy 78.5 ml/min; Glucose 111.0 mg/dl (70-99(Fasting)); Potassium 3.6 mmol/L (3.5-5.1); Sodium 139.0 mmol/L (136-145)
--- NOTE | 2024-11-08 15:15 | Hospitalist Progress Note ---
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 Per ER, patient went out to get the mail and reportedly fell onto his left side. Has an abrasion on left elbow and status post dressing in the ER. did not witness the fall. Patient seems denied any pain at the time of fall but then few hours later complained of left chest pain and EMS was summoned. He was given aspirin and brought to the hospital. Patient also on Xarelto for A-fib. Fall Left rib fracture Abrasion to the left elbow status post dressing the ER Reviewed imaging. Has left sixth rib fracture No pain at present Tylenol as needed PT recommended rehab. Waiting to hear from [facility] for rehab placement. Mild elevated trop likely due to demand ischemia. Alzheimer's disease Continue home donepezil and olanzapine No longer requires one to one for 48-hour Redirect as needed Chronic heart failure with preserved ejection fraction Continue home spironolactone and Lasix Hypokalemia Potassium 3.6 today Atrial fibrillation Continue on metoprolol and Xarelto Hypertension Continue metoprolol succinate and diuretics Will monitor GERD Continue omeprazole Diabetes Hold [employer] metformin Sliding scale insulin Will monitor Hypothyroidism Continue Synthroid Hyperlipidemia Continue on [employer] statin. History of CVA On statin and Xarelto DVT prophylaxis:On Xarelto CODE STATUS DNR/DNI CM working on rehab stay at [facility] Admission and Anticipated Discharge Date Admission Date: November 03, 2024 Subjective Patient seen and examined early this a.m. Chart, data and vital signs were reviewed. Patient is seen at chair side. He is tolerating his breakfast. He denies chest pain, shortness of breath. He denies nausea or vomiting. He denies diarrhea. He denies fever or chills. Has a little bit of pain in the rib cage where he has his rib fracture Physical Exam Physical Exam: General- adult elderly male seen at chair side. Head- atraumatic Eyes- PERRL, EOMI, anicteric ENT- oropharynx clear Neck- supple, no JVD, no adenopathy, no thyromegaly; carotids +2/2, no bruits appreciated Lungs- clear to auscultation and percussion Heart-irregularly irregular with a controlled response Abdomen- normal bowel sounds, soft, nontender, no masses or hepatosplenomegaly Extremities- no pretibial edema, no calf tenderness; peripheral pulses intact Neuro- alert, oriented to person only, he is cooperative and follows commands. No focal deficits. Skin- warm & dry Results & Data Results & Data Vital Signs (Past 12 Hours) Vital Signs Temp Pulse Resp BP Pulse Ox O2 Del Method 11/08/24 14:24 36.5 C 79 16 132/78 96 Room Air 11/08/24 07:42 36.6 C 80 16 130/74 95 Room Air Laboratory Results Laboratory Results WBC 6.84 K/ul (4.8-10.8) 11/04/24 07:28 RBC 4.23 M/uL (4.70-6.10) L 11/04/24 07:28 Hgb 12.8 g/dl (14.0-18.0) L 11/04/24 07:28 Hct 37.4 % (42.0-52.0) L 11/04/24 07:28 MCV 88.4 fL (80.0-100.0) 11/04/24 07:28 MCH 30.3 pg (25.0-34.0) 11/04/24 07: MCHC 34.2 g/dL (32.0-36.0) 11/04/24 07:28 RDW Std Deviation 46.3 fL (36.4-46.3) 11/04/24 07:28 RDW Coeff of Мария 14.5 % (11.5-14.5) 11/04/24 07:28 Plt Count 142 K/uL (130-400) 11/04/24 07:28 MPV 9.6 fL (9.4-12.4) 11/04/24 07:28 Immature Gran % (Auto) 0.4 % 11/03/24 07:14 Neut % (Auto) 80.3 % 11/03/24 07:14 Lymph % (Auto) 7.2 % 11/03/24 07:14 [place] % (Auto) 10.6 % 11/03/24 07:14 Eos % (Auto) 1.0 % 11/03/24 07:14 Baso % (Auto) 0.5 % 11/03/24 07:14 Neut # (Auto) 6.12 K/uL (1.40-6.50) 11/03/24 07:14 Lymph # (Auto) 0.55 K/uL (1.20-3.40) L 11/03/24 07:14 [place] # (Auto) 0.81 K/uL (0.11-0.59) H 11/03/24 07:14 Eos # (Auto) 0.08 K/uL (0.00-0.50) 11/03/24 07:14 Baso # (Auto) 0.04 K/uL (0.00-0.20) 11/03/24 07:14 Immature Gran # (Auto) 0.03 K/uL (0.01-0.20) 11/03/24 07:14 PT 17.1 Seconds (9.0-12.0) H 11/03/24 07:14 INR 1.6 (0.9-1.1) H 11/03/24 07:14 APTT 51 Seconds (21-31) H 11/02/24 22:05 PTT Ratio 1.9 11/02/24 22:05 Sodium 139 mmol/L (136-145) 11/08/24 06:08 Potassium 3.6 mmol/L (3.5-5.1) 11/08/24 06:08 Chloride 105 mmol/L (98-107) 11/08/24 06:08 Carbon Dioxide 27 mmol/L (21-32) 11/08/24 06:08 Anion Gap 7 (3-11) 11/08/24 06:08 BUN 13 mg/dl (6-23) 11/08/24 06:08 Creatinine 0.70 mg/dl (0.6-1.4) 11/08/24 06:08 Est Cr Clr Drug Dosing 78.5 ml/min 11/08/24 06:08 eGFR 88.08 11/08/24 06:08 BUN/Creatinine Ratio 18.6 (10-20) 11/08/24 06:08 Glucose 111 mg/dl (70-99(Fasting)) H 11/08/24 06:08 Calcium 9.6 mg/dl (8.6-10.3) 11/08/24 06:08 Phosphorus 3.0 mg/dl (2.5-4.9) 11/06/24 06:46 Magnesium 1.7 mg/dl (1.7-2.4) 11/07/24 08:27 Total Bilirubin 1.3 mg/dl (0.2-1.0) H 11/02/24 22:05 AST 22 U/L (13-39) 11/02/24 22:05 ALT 10 U/L (7-52) 11/02/24 22:05 Alkaline Phosphatase 123 U/L (34-104) H 11/02/24 22:05 Troponin I High Sens 31.6 pg/ml (0-20) H 11/03/24 19:28 Total Protein 7.1 gm/dl (6.0-8.3) 11/02/24 22:05 Albumin 3.8 gm/dl (3.4-5.0) 11/02/24 22:05 Globulin 3.3 gm/dl (2.5-4.0) 11/02/24 22:05 Albumin/Globulin Ratio 1.2 (0.9-2) 11/02/24 22:05 Urine Color Yellow 11/03/24 10:33 Urine Appearance Clear (Clear) 11/03/24 10:33 Urine pH 6.0 (4.5-7.5) 11/03/24 10:33 Ur Specific [place] 1.016 (1.000-1.030) 11/03/24 10:33 Urine Protein Negative (Negative) 11/03/24 10:33 Urine Glucose (UA) Negative (Negative) 11/03/24 10:33 Urine Ketones 1+ (Negative) H 11/03/24 10:33 Urine Blood 1+ (Negative) H 11/03/24 10:33 Urine Nitrite Negative (Negative) 11/03/24 10:33 Urine Bilirubin Negative (Negative) 11/03/24 10:33 Urine Urobilinogen Negative (Negative) 11/03/24 10:33 Ur Leukocyte Esterase Negative (Negative) 11/03/24 10:33 Urine WBC (Auto) 0-5 /hpf (0-5) 11/03/24 10:33 Urine RBC (Auto) 3-5 /hpf (0-2) H 11/03/24 10:33 U Hyaline Cast (Auto) 0-2 /lpf (0-2) 11/03/24 10:33 U Epithel Cells (Auto) 0-2 /hpf (0-2) 11/03/24 10:33 Urine Bacteria (Auto) None Seen (None Seen) 11/03/24 10:33 Urine Comment 11/03/24 10:33 Impressions Chest X-Ray 11/02/24 22:14 Exam(s): XR CXR 1 VIEW EXAM: XR Chest, 1 View CLINICAL HISTORY: Reason for exam: Chest pain, nonspecific. TECHNIQUE: Frontal view of the chest. COMPARISON: 07/04/2024 FINDINGS: Lungs: Underinflated lungs with bronchovascular crowding, exaggerated by body habitus and technique. No focal infiltrate or consolidation is seen. Pleural space: Unremarkable. No pneumothorax. Heart: The cardiac silhouette is mildly enlarged. Mediastinum: Unremarkable. Normal mediastinal contour. Bones/joints: Unremarkable. No acute fracture. Vasculature: The aortic arch is heavily calcified. IMPRESSION: 1. The cardiac silhouette is mildly enlarged. 2. Underinflated lungs with bronchovascular crowding, exaggerated by body habitus and technique. No focal infiltrate or consolidation is seen. Electronically signed by: Ángel Weaver MD 11/03/24 01:[address] 11/02/24 22:37 Exam(s): CT CHEST Without Contrast EXAM: CT Chest Without Intravenous Contrast CLINICAL HISTORY: Reason for exam: fall Left rib pain. TECHNIQUE: Axial computed tomography images of the chest without intravenous contrast. CTDI is 17.21 mGy and DLP is 598.83 mGy-cm. Automated exposure control was utilized for the study. A dose lowering technique was utilized adhering to the principles of ALARA. COMPARISON: No relevant prior studies available. FINDINGS: Lungs: Unremarkable. No mass. No consolidation. Pleural space: See below. Heart: The heart is mildly enlarged. There is moderate coronary calcification involving all coronary vessels. No pericardial effusion. Mediastinum: 10 cm hiatal hernia containing half of the stomach. Bones/joints: There is an acute slightly displaced fracture of the mid left 6th rib. No pneumothorax or pleural fluid collection is seen. Mild degenerative changes throughout the spine. No acute spinal fracture or destructive bone lesion is seen. Soft tissues: Unremarkable. Vasculature: The thoracic aorta is heavily calcified but nondilated. This is a noncontrast study. Lymph nodes: Unremarkable. No enlarged lymph nodes. IMPRESSION: 1. There is an acute slightly displaced fracture of the mid left 6th rib. No pneumothorax or pleural fluid collection is seen. 2. 10 cm hiatal hernia containing half of the stomach. Electronically signed by: Ángel Weaver MD 11/03/24 02:[address] 11/02/24 22:41 Exam(s): CT HEAD Without Contrast EXAM: CT Head Without Intravenous Contrast CLINICAL HISTORY: Reason for exam: Trauma. TECHNIQUE: Axial computed tomography images of the head/brain without intravenous contrast. CTDI is 38.17 mGy and DLP is 624.41 mGy-cm. Automated exposure control was utilized for the study. A dose lowering technique was utilized adhering to the principles of ALARA. COMPARISON: Prior head CT from July 08, 2024. FINDINGS: Brain: Unremarkable. No hemorrhage. No significant white matter disease. No edema. Ventricles: Unremarkable. No ventriculomegaly. Bones/joints: Unremarkable. No acute fracture. Soft tissues: Unremarkable. Sinuses: Unremarkable as visualized. No acute sinusitis. Mastoid air cells: Unremarkable as visualized. No mastoid effusion. IMPRESSION: No evidence of acute intracranial pathology. Electronically signed by: Huma Galvez MD 11/03/24 02:20 AM Elbow X-Ray 11/02/24 23:38 Exam(s): XR LEFT ELBOW, 3+ views EXAM: XR Left Elbow Complete, 3 or More Views CLINICAL HISTORY: Reason for exam: fall. TECHNIQUE: Frontal, lateral and oblique views of the left elbow. COMPARISON: No relevant prior studies available. 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 Bone mineral density is normal. There is a 3 mm enthesophyte at the tip of the olecranon. Fat pads are nondisplaced. No elbow joint effusion is seen. No acute fracture or dislocation is seen. Soft tissues: Unremarkable. IMPRESSION: Mild degenerative changes. No acute fracture or dislocation is seen. Electronically signed by: Ángel Weaver MD 11/03/24 02:01 AM
--- NOTE | 2024-11-09 16:20 | Hospitalist Progress Note ---
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 Per ER, patient went out to get the mail and reportedly fell onto his left side. Has an abrasion on left elbow and status post dressing in the ER. did not witness the fall. Patient seems denied any pain at the time of fall but then few hours later complained of left chest pain and EMS was summoned. He was given aspirin and brought to the hospital. Patient also on Xarelto for A-fib. Fall Left rib fracture Abrasion to the left elbow status post dressing the ER Reviewed imaging. Has left sixth rib fracture No pain at present Tylenol as needed PT recommended rehab. Per care management:spoke with kacy based on evals today of him being contact [facility] they do not feel he is a rehab candidate and insurance will likely deny. Primary contact is his son. He is out of the area until Wednesday and will arrange for probable discharge to home with family support and home health. Mild elevated trop likely due to demand ischemia. 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 History of CVA On statin and Xarelto DVT prophylaxis:On Xarelto CODE STATUS DNR/DNI Will likely be discharged to home with family support and home health Admission and Anticipated Discharge Date Admission Date: November 03, 2024 Subjective Patient seen and examined early this a.m. Chart, data and vital signs were reviewed. Patient is seen at chair side. He continues with PT. He is no longer requiring 1: 1. he denies chest pain, shortness of breath. He denies nausea or vomiting. He denies diarrhea. He denies fever or chills. Has a little bit of pain in the rib cage where he has his rib fracture Physical Exam Physical Exam: General- adult elderly male seen at chair side, he is cooperative and follows commands Head- atraumatic Eyes- PERRL, EOMI, anicteric ENT- oropharynx clear Neck- supple, no JVD, no adenopathy, Lungs- clear to auscultation and percussion Heart-irregularly irregular at 80 bpm; Abdomen- normal bowel sounds, soft, nontender, no masses or hepatosplenomegaly Extremities- no pretibial edema, no calf tenderness; peripheral pulses intact Neuro- alert, oriented to person only; PERRL, EOMI; moves all extremities bilaterally Skin- warm & dry Results & Data Results & Data Vital Signs (Past 12 Hours) Vital Signs Temp Pulse Pulse Resp BP BP Pulse Ox 11/09/24 14:33 36.6 C 76 18 123/74 96 11/09/24 08:00 36.6 C 70 16 116/73 92 O2 Del Method 11/09/24 14:33 Room Air 11/09/24 08:00 Room Air Diagnostic Findings Laboratory Results WBC 6.84 K/ul (4.8-10.8) 11/04/24 07: RBC 4.23 M/uL (4.70-6.10) L 11/04/24 07:28 Hgb 12.8 g/dl (14.0-18.0) L 11/04/24 07:28 Hct 37.4 % (42.0-52.0) L 11/04/24 07: MCV 88.4 fL (80.0-100.0) 11/04/24 07:28 MCH 30.3 pg (25.0-34.0) 11/04/24 07: MCHC 34.2 g/dL (32.0-36.0) 11/04/24 07: RDW Std Deviation 46.3 fL (36.4-46.3) 11/04/24 07: RDW Coeff of Мария 14.5 % (11.5-14.5) 11/04/24 07: Plt Count 142 K/uL (130-400) 11/04/24 07:28 MPV 9.6 fL (9.4-12.4) 11/04/24 07:28 Immature Gran % (Auto) 0.4 % 11/03/24 07:14 Neut % (Auto) 80.3 % 11/03/24 07:14 Lymph % (Auto) 7.2 % 11/03/24 07:14 [place] % (Auto) 10.6 % 11/03/24 07:14 Eos % (Auto) 1.0 % 11/03/24 07:14 Baso % (Auto) 0.5 % 11/03/24 07:14 Neut # (Auto) 6.12 K/uL (1.40-6.50) 11/03/24 07:14 Lymph # (Auto) 0.55 K/uL (1.20-3.40) L 11/03/24 07:14 [place] # (Auto) 0.81 K/uL (0.11-0.59) H 11/03/24 07:14 Eos # (Auto) 0.08 K/uL (0.00-0.50) 11/03/24 07:14 Baso # (Auto) 0.04 K/uL (0.00-0.20) 11/03/24 07:14 Immature Gran # (Auto) 0.03 K/uL (0.01-0.20) 11/03/24 07:14 PT 17.1 Seconds (9.0-12.0) H 11/03/24 07:14 INR 1.6 (0.9-1.1) H 11/03/24 07:14 APTT 51 Seconds (21-31) H 11/02/24 22:05 PTT Ratio 1.9 11/02/24 22:05 Sodium 139 mmol/L (136-145) 11/08/24 06:08 Potassium 3.6 mmol/L (3.5-5.1) 11/08/24 06:08 Chloride 105 mmol/L (98-107) 11/08/24 06:08 Carbon Dioxide 27 mmol/L (21-32) 11/08/24 06:08 Anion Gap 7 (3-11) 11/08/24 06:08 BUN 13 mg/dl (6-23) 11/08/24 06:08 Creatinine 0.70 mg/dl (0.6-1.4) 11/08/24 06:08 Est Cr Clr Drug Dosing 78.5 ml/min 11/08/24 06:08 eGFR 88.08 11/08/24 06:08 BUN/Creatinine Ratio 18.6 (10-20) 11/08/24 06:08 Glucose 111 mg/dl (70-99(Fasting)) H 11/08/24 06:08 Calcium 9.6 mg/dl (8.6-10.3) 11/08/24 06:08 Phosphorus 3.0 mg/dl (2.5-4.9) 11/06/24 06:46 Magnesium 1.7 mg/dl (1.7-2.4) 11/07/24 08:27 Total Bilirubin 1.3 mg/dl (0.2-1.0) H 11/02/24 22:05 AST 22 U/L (13-39) 11/02/24 22:05 ALT 10 U/L (7-52) 11/02/24 22:05 Alkaline Phosphatase 123 U/L (34-104) H 11/02/24 22:05 Troponin I High Sens 31.6 pg/ml (0-20) H 11/03/24 19:28 Total Protein 7.1 gm/dl (6.0-8.3) 11/02/24 22:05 Albumin 3.8 gm/dl (3.4-5.0) 11/02/24 22:05 Globulin 3.3 gm/dl (2.5-4.0) 11/02/24 22:05 Albumin/Globulin Ratio 1.2 (0.9-2) 11/02/24 22:05 Urine Color Yellow 11/03/24 10:33 Urine Appearance Clear (Clear) 11/03/24 10:33 Urine pH 6.0 (4.5-7.5) 11/03/24 10:33 Ur Specific [place] 1.016 (1.000-1.030) 11/03/24 10:33 Urine Protein Negative (Negative) 11/03/24 10:33 Urine Glucose (UA) Negative (Negative) 11/03/24 10:33 Urine Ketones 1+ (Negative) H 11/03/24 10:33 Urine Blood 1+ (Negative) H 11/03/24 10:33 Urine Nitrite Negative (Negative) 11/03/24 10:33 Urine Bilirubin Negative (Negative) 11/03/24 10:33 Urine Urobilinogen Negative (Negative) 11/03/24 10:33 Ur Leukocyte Esterase Negative (Negative) 11/03/24 10:33 Urine WBC (Auto) 0-5 /hpf (0-5) 11/03/24 10:33 Urine RBC (Auto) 3-5 /hpf (0-2) H 11/03/24 10:33 U Hyaline Cast (Auto) 0-2 /lpf (0-2) 11/03/24 10:33 U Epithel Cells (Auto) 0-2 /hpf (0-2) 11/03/24 10:33 Urine Bacteria (Auto) None Seen (None Seen) 11/03/24 10:33 Urine Comment 11/03/24 10:33 Impressions Chest X-Ray 11/02/24 22:14 Exam(s): XR CXR 1 VIEW EXAM: XR Chest, 1 View CLINICAL HISTORY: Reason for exam: Chest pain, nonspecific. TECHNIQUE: Frontal view of the chest. COMPARISON: 07/04/2024 FINDINGS: Lungs: Underinflated lungs with bronchovascular crowding, exaggerated by body habitus and technique. No focal infiltrate or consolidation is seen. Pleural space: Unremarkable. No pneumothorax. Heart: The cardiac silhouette is mildly enlarged. Mediastinum: Unremarkable. Normal mediastinal contour. Bones/joints: Unremarkable. No acute fracture. Vasculature: The aortic arch is heavily calcified. IMPRESSION: 1. The cardiac silhouette is mildly enlarged. 2. Underinflated lungs with bronchovascular crowding, exaggerated by body habitus and technique. No focal infiltrate or consolidation is seen. Electronically signed by: Ángel Weaver MD 11/03/24 01:[address] 11/02/24 22:37 Exam(s): CT CHEST Without Contrast EXAM: CT Chest Without Intravenous Contrast CLINICAL HISTORY: Reason for exam: fall Left rib pain. TECHNIQUE: Axial computed tomography images of the chest without intravenous contrast. CTDI is 17.21 mGy and DLP is 598.83 mGy-cm. Automated exposure control was utilized for the study. A dose lowering technique was utilized adhering to the principles of ALARA. COMPARISON: No relevant prior studies available. FINDINGS: Lungs: Unremarkable. No mass. No consolidation. Pleural space: See below. Heart: The heart is mildly enlarged. There is moderate coronary calcification involving all coronary vessels. No pericardial effusion. Mediastinum: 10 cm hiatal hernia containing half of the stomach. Bones/joints: There is an acute slightly displaced fracture of the mid left 6th rib. No pneumothorax or pleural fluid collection is seen. Mild degenerative changes throughout the spine. No acute spinal fracture or destructive bone lesion is seen. Soft tissues: Unremarkable. Vasculature: The thoracic aorta is heavily calcified but nondilated. This is a noncontrast study. Lymph nodes: Unremarkable. No enlarged lymph nodes. IMPRESSION: 1. There is an acute slightly displaced fracture of the mid left 6th rib. No pneumothorax or pleural fluid collection is seen. 2. 10 cm hiatal hernia containing half of the stomach. Electronically signed by: Ángel Weaver MD 11/03/24 02:[address] 11/02/24 22:41 Exam(s): CT HEAD Without Contrast EXAM: CT Head Without Intravenous Contrast CLINICAL HISTORY: Reason for exam: Trauma. TECHNIQUE: Axial computed tomography images of the head/brain without intravenous contrast. CTDI is 38.17 mGy and DLP is 624.41 mGy-cm. Automated exposure control was utilized for the study. A dose lowering technique was utilized adhering to the principles of ALARA. COMPARISON: Prior head CT from July 08, 2024. FINDINGS: Brain: Unremarkable. No hemorrhage. No significant white matter disease. No edema. Ventricles: Unremarkable. No ventriculomegaly. Bones/joints: Unremarkable. No acute fracture. Soft tissues: Unremarkable. Sinuses: Unremarkable as visualized. No acute sinusitis. Mastoid air cells: Unremarkable as visualized. No mastoid effusion. IMPRESSION: No evidence of acute intracranial pathology. Electronically signed by: Huma Galvez MD 11/03/24 02:20 AM Elbow X-Ray 11/02/24 23:38 Exam(s): XR LEFT ELBOW, 3+ views EXAM: XR Left Elbow Complete, 3 or More Views CLINICAL HISTORY: Reason for exam: fall. TECHNIQUE: Frontal, lateral and oblique views of the left elbow. COMPARISON: No relevant prior studies available. 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 Bone mineral density is normal. There is a 3 mm enthesophyte at the tip of the olecranon. Fat pads are nondisplaced. No elbow joint effusion is seen. No acute fracture or dislocation is seen. Soft tissues: Unremarkable. IMPRESSION: Mild degenerative changes. No acute fracture or dislocation is seen. Electronically signed by: Ángel Weaver MD 11/03/24 02:01 AM
--- NOTE | 2024-11-10 17:23 | Hospitalist Progress Note ---
Date of Service November 10, 2024 Assessment & Plan (1) Left rib fracture: Plan: Mr. 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 #Unwitness mechanical fall #Left rib fracture #Abrasion to the left elbow status post dressing the ER Reviewed imaging. Has left sixth rib fracture No pain at present Tylenol as needed PT recommended rehab; however, insurance declined Plan for dispo Wednesday Mild elevated trop likely due to demand ischemia. 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 #History of CVA On statin and Xarelto DVT prophylaxis:On Xarelto CODE STATUS DNR/DNI Will likely be discharged to home with family support and home health on Wednesday Admission and Anticipated Discharge Date Admission Date: November 03, 2024 Subjective NAEo agitated for staying so long, but denies any acute ongoing issues sitting in bedside chair AxOx1 1-2 alert to self, and seemingly situation. Physical Exam Constitutional: WD/WN, vitals as above Respiratory: normal respiratory effort, lungs clear to auscultation Cardiovascular: RRR, no murmur, no edema Gastrointestinal (Abdomen): normal bowel sounds, soft, nontender, no hepatosplenomegaly Musculoskeletal: no cyanosis or clubbing, extremities motor strength 5/5 Results & Data Results & Data Vital Signs (Past 12 Hours) Vital Signs Temp Pulse Resp BP Pulse Ox O2 Del Method 11/10/24 16:14 36.7 C 89 17 114/67 96 Room Air 11/10/24 07:52 36.4 C L 106 H 16 153/80 H 95 Room Air Medications Administered Home Medications Medication Instructions Recorded Confirmed Last Taken clotrimazole-betamethasone 1 1 applic topical BID PRN Rash 11/13/19 11/02/24 11/16/19 08:00 %-0.05 % topical cream levothyroxine 50 mcg tablet 50 mcg PO QAM 11/13/19 11/02/24 11/16/19 08:00 metformin 850 mg tablet 850 mg PO BIDM 11/13/19 11/02/24 11/16/19 08:00 niacin 500 mg tablet 500 mg PO QAM 11/13/19 11/02/24 11/16/19 08:00 atorvastatin 10 mg tablet 10 mg PO QDL 07/04/24 11/02/24 Unknown donepezil 10 mg tablet 10 mg PO QPM 07/04/24 11/02/24 Unknown ferrous sulfate 325 mg (65 mg 325 mg PO QDL 07/04/24 11/02/24 Unknown iron) tablet (FeroSul) metoprolol tartrate 50 mg tablet 50 mg PO BID 07/04/24 11/02/24 Unknown omeprazole 20 mg capsule,delayed 20 mg PO QDL 07/04/24 11/02/24 Unknown release rivaroxaban 20 mg tablet (Xarelto) 20 mg PO PM 07/04/24 11/02/24 Unknown furosemide 40 mg tablet 40 mg PO QAM #30 tabs 07/09/24 11/02/24 Unknown haloperidol 5 mg tablet 5 mg PO BID PRN agitation #20 tabs 07/09/24 11/02/24 Unknown magnesium oxide 400 mg (241.3 mg 400 mg PO QDL 11/02/24 11/02/24 Unknown magnesium) tablet olanzapine 5 mg disintegrating 5 mg PO .DAILY AT NOON 11/02/24 11/02/24 Unknown tablet spironolactone 25 mg tablet 25 mg PO QAM 11/03/24 11/03/24 Unknown Active Medications Generic Name Dose Route Start Last Admin Trade Name Ataq PRN Reason Stop Dose Admin Atorvastatin Calcium 10 mg 11/03/24 11:30 11/10/24 11:53 Atorvastatin 10 Mg Tab PO 12/03/24 11:29 10 mg QDL JOANNA Administration Donepezil HCl 10 mg 11/03/24 21:00 11/10/24 03:10 Donepezil Hcl 10 Mg Tab PO 12/03/24 20:59 Not Given QPM JOANNA Ferrous Sulfate 325 mg 11/03/24 11:30 11/10/24 11:53 Ferrous Sulfate 325 Mg Tab PO 12/03/24 11:29 325 mg QDL JOANNA Administration Furosemide 40 mg 11/03/24 09:00 11/10/24 07:41 Furosemide 40 Mg Tab PO 12/03/24 08:59 40 mg QAM JOANNA Administration Haloperidol 5 mg 11/03/24 06:25 11/08/24 11:14 Haloperidol 5 Mg Tab PO 12/03/24 06:24 5 mg BID PRN Administration agitation Levothyroxine Sodium 50 mcg 11/03/24 07:00 11/10/24 05:53 Levothyroxine Sodium 50 Mcg Tablet PO 12/03/24 06:59 50 mcg DAILYBB JOANNA Administration Magnesium Oxide 400 mg 11/03/24 11:30 11/10/24 11:53 Magnesium Oxide 400 Mg Tab PO 12/03/24 11:29 400 mg QDL JOANNA Administration Melatonin 3 mg 11/06/24 22:50 11/08/24 21:03 Melatonin 3 Mg Tab PO 12/06/24 22:49 3 mg HS PRN Administration Sleep Metoprolol Tartrate 50 mg 11/03/24 09:00 11/10/24 07:41 Metoprolol Tartrate 50 Mg Tab PO 12/03/24 08:59 50 mg BID JOANNA Administration Niacin 500 mg 11/03/24 09:00 11/10/24 07:42 Niacin 500 Mg Tab PO 12/03/24 08:59 500 mg QAM JOANNA Administration Olanzapine 5 mg 11/03/24 12:00 11/10/24 11:53 Olanzapine Zydis 5 Mg Orally Dis. Tab PO 12/03/24 11:59 5 mg DAILY@1200 JOANNA Administration Pantoprazole Sodium 40 mg 11/03/24 11:30 11/10/24 11:53 Pantoprazole 40 Mg Tab PO 12/03/24 11:29 40 mg QDL JOANNA Administration Rivaroxaban 20 mg 11/03/24 16:30 11/10/24 16:13 Rivaroxaban 20 Mg Tab PO 12/03/24 16:29 20 mg QDD JOANNA Administration Spironolactone 25 mg 11/03/24 09:00 11/10/24 07:42 Spironolactone 25 Mg Tab PO 12/03/24 08:59 25 mg QAM JOANNA Administration
--- NOTE | 2024-11-11 13:24 | Hospitalist Progress Note ---
Date of Service November 11, 2024 Assessment & Plan (1) Left rib fracture: Plan: Mr. 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 No changes to management at this time #Unwitnessed mechanical fall #Left rib fracture #Abrasion to the left elbow status post dressing the ER Reviewed imaging. Has left sixth rib fracture No pain at present Tylenol as needed PT recommended rehab; however, insurance declined Plan for dispo Wednesday Mild elevated trop likely due to demand ischemia. 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 #History of CVA On statin and Xarelto DVT prophylaxis:On Xarelto CODE STATUS DNR/DNI Will likely be discharged to home with family support and home health on Wednesday Admission and Anticipated Discharge Date Admission Date: November 03, 2024 Subjective NAEO sitting in bedside chair denies any active concerns at this time explained reason why son cannot come pick patient up until wednesday--verbalized understanding, AOx1 Physical Exam Constitutional: WD/WN, vitals as above Respiratory: normal respiratory effort, lungs clear to auscultation Cardiovascular: irregularly irregular Gastrointestinal (Abdomen): normal bowel sounds, soft, nontender, no hepatosplenomegaly Results & Data Results & Data Vital Signs (Past 12 Hours) Vital Signs Temp Pulse Resp BP Pulse Ox O2 Del Method 11/11/24 07:30 36.6 C 93 H 18 153/78 H 96 Room Air Medications Administered Home Medications Medication Instructions Recorded Confirmed Last Taken clotrimazole-betamethasone 1 1 applic topical BID PRN Rash 11/13/19 11/02/24 11/16/19 08:00 %-0.05 % topical cream levothyroxine 50 mcg tablet 50 mcg PO QAM 11/13/19 11/02/24 11/16/19 08:00 metformin 850 mg tablet 850 mg PO BIDM 11/13/19 11/02/24 11/16/19 08:00 niacin 500 mg tablet 500 mg PO QAM 11/13/19 11/02/24 11/16/19 08:00 atorvastatin 10 mg tablet 10 mg PO QDL 07/04/24 11/02/24 Unknown donepezil 10 mg tablet 10 mg PO QPM 07/04/24 11/02/24 Unknown ferrous sulfate 325 mg (65 mg 325 mg PO QDL 07/04/24 11/02/24 Unknown iron) tablet (FeroSul) metoprolol tartrate 50 mg tablet 50 mg PO BID 07/04/24 11/02/24 Unknown omeprazole 20 mg capsule,delayed 20 mg PO QDL 07/04/24 11/02/24 Unknown release rivaroxaban 20 mg tablet (Xarelto) 20 mg PO PM 07/04/24 11/02/24 Unknown furosemide 40 mg tablet 40 mg PO QAM #30 tabs 07/09/24 11/02/24 Unknown haloperidol 5 mg tablet 5 mg PO BID PRN agitation #20 tabs 07/09/24 11/02/24 Unknown magnesium oxide 400 mg (241.3 mg 400 mg PO QDL 11/02/24 11/02/24 Unknown magnesium) tablet olanzapine 5 mg disintegrating 5 mg PO .DAILY AT NOON 11/02/24 11/02/24 Unknown tablet spironolactone 25 mg tablet 25 mg PO QAM 11/03/24 11/03/24 Unknown Active Medications Generic Name Dose Route Start Last Admin Trade Name Freq PRN Reason Stop Dose Admin Atorvastatin Calcium 10 mg 11/03/24 11:30 11/11/24 12:01 Atorvastatin 10 Mg Tab PO 12/03/24 11:29 10 mg QDL JOANNA Administration Donepezil HCl 10 mg 11/03/24 21:00 11/10/24 20:07 Donepezil Hcl 10 Mg Tab PO 12/03/24 20:59 10 mg QPM JOANNA Administration Ferrous Sulfate 325 mg 11/03/24 11:30 11/11/24 12:01 Ferrous Sulfate 325 Mg Tab PO 12/03/24 11:29 325 mg QDL JOANNA Administration Furosemide 40 mg 11/03/24 09:00 11/11/24 08:17 Furosemide 40 Mg Tab PO 12/03/24 08:59 40 mg QAM JOANNA Administration Haloperidol 5 mg 11/03/24 06:25 11/10/24 20:05 Haloperidol 5 Mg Tab PO 12/03/24 06:24 5 mg BID PRN Administration agitation Levothyroxine Sodium 50 mcg 11/03/24 07:00 11/11/24 05:56 Levothyroxine Sodium 50 Mcg Tablet PO 12/03/24 06:59 50 mcg DAILYBB JOANNA Administration Magnesium Oxide 400 mg 11/03/24 11:30 11/11/24 12:01 Magnesium Oxide 400 Mg Tab PO 12/03/24 11:29 400 mg QDL JOANNA Administration Melatonin 3 mg 11/06/24 22:50 11/10/24 20:05 Melatonin 3 Mg Tab PO 12/06/24 22:49 3 mg HS PRN Administration Sleep Metoprolol Tartrate 50 mg 11/03/24 09:00 11/11/24 08:17 Metoprolol Tartrate 50 Mg Tab PO 12/03/24 08:59 50 mg BID JOANNA Administration Niacin 500 mg 11/03/24 09:00 11/11/24 08:17 Niacin 500 Mg Tab PO 12/03/24 08:59 500 mg QAM JOANNA Administration Olanzapine 5 mg 11/03/24 12:00 11/11/24 12:01 Olanzapine Zydis 5 Mg Orally Dis. Tab PO 12/03/24 11:59 5 mg DAILY@1200 JOANNA Administration Pantoprazole Sodium 40 mg 11/03/24 11:30 11/11/24 12:01 Pantoprazole 40 Mg Tab PO 12/03/24 11:29 40 mg QDL JOANNA Administration Rivaroxaban 20 mg 11/03/24 16:30 11/10/24 16:13 Rivaroxaban 20 Mg Tab PO 12/03/24 16:29 20 mg QDD JOANNA Administration Spironolactone 25 mg 11/03/24 09:00 11/11/24 08:17 Spironolactone 25 Mg Tab PO 12/03/24 08:59 25 mg QAM JOANNA Administration
[2024-11-11] MEDS: OLANZAPINE 2.5 MG TAB PO STA (19:52)
[2024-11-11 20:48] LABS: Appearance Urine Clear (Clear); Glucose Urine UA Negative (Negative)
[2024-11-11] MEDS: ACETAMINOPHEN 325 MG TAB PO PRN (23:06)
--- NOTE | 2024-11-11 23:09 | Communication Note ---
Date of Service: November 11, 2024 Patient more confused than usual as per RN. Complaining of abdominal pain. Refusing blood work and CT imaging. Will relay to AM provider.
[2024-11-12 08:20] LABS: Anion Gap 6.0 (3-11); Blood Urea Nitrogen 15.0 mg/dl (6-23); Calcium 9.6 mg/dl (8.6-10.3); Carbon Dioxide 28.0 mmol/L (21-32); Chloride 103.0 mmol/L (98-107); Creatinine Clr Calc Pharmacy 69.6 ml/min; Glucose 208.0 mg/dl (70-99(Fasting)); Potassium 3.5 mmol/L (3.5-5.1); Sodium 137.0 mmol/L (136-145)
--- NOTE | 2024-11-12 11:47 | Hospitalist Progress Note ---
Date of Service November 12, 2024 Assessment & Plan (1) Left rib fracture: Plan: Mr. 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 No changes to management at this time Reports of abdominal pain no longer present. Labs reviewed and stable at this time. UA negative. Plan for discharge tomorrow with son Attempted to call son for update at 1145, however no answer--reportedly traveling from [place] at this time. #Unwitnessed mechanical fall #Left rib fracture #Abrasion to the left elbow status post dressing the ER Reviewed imaging. Has left sixth rib fracture No pain at present Tylenol as needed PT recommended rehab; however, insurance declined Plan for dispo Wednesday Mild elevated trop likely due to demand ischemia. #Alzheimer's disease Continue home donepezil and olanzapine Redirect as needed, delirium precautions #Chronic heart failure with preserved ejection fraction Continue home spironolactone and Lasix #Hypokalemia start daily replacement #Atrial fibrillation Continue on metoprolol and Xarelto #Hypertension Continue metoprolol succinate and diuretics Will monitor #GERD Continue omeprazole #Diabetes Hold TUBING DRIER metformin Sliding scale insulin Will monitor #Hypothyroidism Continue Synthroid #Hyperlipidemia Continue on TUBING DRIER statin. #History of CVA On statin and Xarelto DVT prophylaxis:On Xarelto CODE STATUS DNR/DNI Will likely be discharged to home with family support and home health on Wednesday Admission and Anticipated Discharge Date Admission Date: November 03, 2024 Subjective NAEO Remains AOx1 to self, denies any new concerns. Questioned about stomach pain last evening and he reports it was related to "likely eating something that didn t settle well" Patient with 1:1 sitter due to evening delirium Physical Exam Constitutional: WD/WN, vitals as above (pleasantly sitting in bedside chair ) Respiratory: normal respiratory effort, lungs clear to auscultation Cardiovascular: irregularly irregular Gastrointestinal (Abdomen): normal bowel sounds, soft, nontender, no hepatosplenomegaly Results & Data Results & Data Vital Signs (Past 12 Hours) Vital Signs Temp Pulse Resp BP Pulse Ox O2 Del Method 11/12/24 08:03 36.6 C 91 H 16 128/77 96 Room Air Laboratory Results [facility] 11/12/24 07:47 Sodium 137 Potassium 3.5 Chloride 103 Carbon Dioxide 28 BUN 15 Creatinine 0.79 Glucose 208 H Calcium 9.6 Urine 11/11/24 Range/Units 20:25 Urine Color Yellow Urine Appearance Clear (Clear) Urine pH 6.5 (4.5-7.5) Ur Specific [place] 1.011 (1.000-1.030) Urine Protein Negative (Negative) Urine Glucose (UA) Negative (Negative) Medications Administered Home Medications Medication Instructions Recorded Confirmed Last Taken clotrimazole-betamethasone 1 1 applic topical BID PRN Rash 11/13/19 11/02/24 11/16/19 08:00 %-0.05 % topical cream levothyroxine 50 mcg tablet 50 mcg PO QAM 11/13/19 11/02/24 11/16/19 08:00 metformin 850 mg tablet 850 mg PO BIDM 11/13/19 11/02/24 11/16/19 08:00 niacin 500 mg tablet 500 mg PO QAM 11/13/19 11/02/24 11/16/19 08:00 atorvastatin 10 mg tablet 10 mg PO QDL 07/04/24 11/02/24 Unknown donepezil 10 mg tablet 10 mg PO QPM 07/04/24 11/02/24 Unknown ferrous sulfate 325 mg (65 mg 325 mg PO QDL 07/04/24 11/02/24 Unknown iron) tablet (FeroSul) metoprolol tartrate 50 mg tablet 50 mg PO BID 07/04/24 11/02/24 Unknown omeprazole 20 mg capsule,delayed 20 mg PO QDL 07/04/24 11/02/24 Unknown release rivaroxaban 20 mg tablet (Xarelto) 20 mg PO PM 07/04/24 11/02/24 Unknown furosemide 40 mg tablet 40 mg PO QAM #30 tabs 07/09/24 11/02/24 Unknown haloperidol 5 mg tablet 5 mg PO BID PRN agitation #20 tabs 07/09/24 11/02/24 Unknown magnesium oxide 400 mg (241.3 mg 400 mg PO QDL 11/02/24 11/02/24 Unknown magnesium) tablet olanzapine 5 mg disintegrating 5 mg PO .DAILY AT NOON 07/03/25 07/03/25 Unknown tablet spironolactone 25 mg tablet 25 mg PO QAM 11/03/24 11/03/24 Unknown Active Medications Generic Name Dose Route Start Last Admin Trade Name Freq PRN Reason Stop Dose Admin Acetaminophen 650 mg 11/11/24 22:58 11/11/24 23:06 Acetaminophen 325 Mg Tab PO 12/11/24 22:57 650 mg QID PRN Administration pain/fever Atorvastatin Calcium 10 mg 11/03/24 11:30 11/11/24 12:01 Atorvastatin 10 Mg Tab PO 12/03/24 11:29 10 mg QDL JOANNA Administration Donepezil HCl 10 mg 11/03/24 21:00 11/11/24 19:50 Donepezil Hcl 10 Mg Tab PO 12/03/24 20:59 10 mg QPM JOANNA Administration Ferrous Sulfate 325 mg 11/03/24 11:30 11/11/24 12:01 Ferrous Sulfate 325 Mg Tab PO 12/03/24 11:29 325 mg QDL JOANNA Administration Furosemide 40 mg 11/03/24 09:00 11/12/24 08:49 Furosemide 40 Mg Tab PO 12/03/24 08:59 40 mg QAM JOANNA Administration Haloperidol 5 mg 11/03/24 06:25 11/10/24 20:05 Haloperidol 5 Mg Tab PO 12/03/24 06:24 5 mg BID PRN Administration agitation Levothyroxine Sodium 50 mcg 11/03/24 07:00 11/12/24 05:12 Levothyroxine Sodium 50 Mcg Tablet PO 12/03/24 06:59 50 mcg DAILYBB JOANNA Administration Magnesium Oxide 400 mg 11/03/24 11:30 11/11/24 12:01 Magnesium Oxide 400 Mg Tab PO 12/03/24 11:29 400 mg QDL JOANNA Administration Melatonin 3 mg 11/06/24 22:50 11/11/24 19:50 Melatonin 3 Mg Tab PO 12/06/24 22:49 3 mg HS PRN Administration Sleep Metoprolol Tartrate 50 mg 11/03/24 09:00 11/12/24 08:49 Metoprolol Tartrate 50 Mg Tab PO 12/03/24 08:59 50 mg BID JOANNA Administration Niacin 500 mg 11/03/24 09:00 11/12/24 08:49 Niacin 500 Mg Tab PO 12/03/24 08:59 500 mg QAM JOANNA Administration Olanzapine 5 mg 11/03/24 12:00 11/11/24 12:01 Olanzapine Zydis 5 Mg Orally Dis. Tab PO 12/03/24 11:59 5 mg DAILY@1200 JOANNA Administration Pantoprazole Sodium 40 mg 11/03/24 11:30 11/11/24 12:01 Pantoprazole 40 Mg Tab PO 12/03/24 11:29 40 mg QDL JOANNA Administration Rivaroxaban 20 mg 11/03/24 16:30 11/11/24 17:41 Rivaroxaban 20 Mg Tab PO 12/03/24 16:29 20 mg QDD JOANNA Administration Spironolactone 25 mg 11/03/24 09:00 11/12/24 08:49 Spironolactone 25 Mg Tab PO 12/03/24 08:59 25 mg QAM JOANNA Administration
[2024-11-12] MEDS: POTASSIUM CHLORIDE 10 MEQ TABCR PO SCH (12:10)
[2024-11-13 07:22] VITALS: BP 119/78; PULSE 99; RESP 16; TEMP 97.3; O2SAT 95
--- NOTE | 2024-11-13 16:24 | Discharge Summary ---
Date of Service November 13, 2024 Admission HPI Per Admitting Provider 89-year-old male with past medical history significant for hypothyroidism, dyslipidemia, chronic heart failure with preserved ejection fraction, cor pulmonale, longstanding persistent atrial fibrillation, hypertension, GERD, pyogenic granuloma of lip, Alzheimer's disease, anemia, history of CVA who lives at his home with his was brought in because of fall and found to have left sixth rib fracture. Patient is currently somewhat restless and sitting at the nursing station chatting with the staff. Received IM Zyprexa but did not helped much. He seems pleasant. Knows his name. Could tell his date of . But could not tell current dates and place. Seems talking tangentially. Denies headache. Denies chest pain. Denies back pain. Could not get much history from the patient. Hemodynamics are okay. As per ER patient went out to get the mail and reportedly fell onto his left side. Has an abrasion on left elbow and status post dressing in the ER. did not witness the fall. Patient seems denied any pain at the time of fall but then few hours later complained of left chest pain and EMS was summoned. He was given aspirin and brought to the hospital. Patient also on Xarelto for A-fib. Able to reach his son. As per son patient is DNR/DNI. 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 Past medical history. As mentioned above Past surgical history. No surgical history on file. Social history. . No smoking. No alcohol use. No drug use. Family history. Mother had colon cancer. Principal Diagnosis Fall Rib Fx Discharge Exam General- adult elderly male, Head- atraumatic Eyes- PERRL, EOMI, anicteric ENT- oropharynx clear Neck- supple, no JVD, no adenopathy, no thyromegaly; carotids +2/2, no bruits appreciated Lungs- clear to auscultation and percussion Heart-irregularly irregular with a controlled rhythm; Abdomen- normal bowel sounds, soft, nontender, no masses or hepatosplenomegaly Extremities- no pretibial edema, no calf tenderness; peripheral pulses intact Neuro- alert, oriented to person and place; PERRL, EOMI; Discharge Data Allergies Allergy/AdvReac Type Severity Reaction Status Date / Time No Known Allergies Allergy Verified 07/05/24 09:14 Consultations 11/03/24 02:11 ED Decision to Admit Stat Ordered Studies 11/02/24 22:37 CT chest diagnostic wo con Stat 11/02/24 22:41 CT head/brain wo con Stat 11/11/24 23:10 CT Abd and Pelvis [CT abd pelvis IV con only] Stat Hospital Course (1) Left rib fracture: Mr. 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 No changes to management at this time Reports of abdominal pain no longer present. Labs reviewed and stable at this time. UA negative. Plan for discharge tomorrow with son Attempted to call son for update at 1145, however no answer--reportedly traveling from [place] at this time. #Unwitnessed mechanical fall #Left rib fracture #Abrasion to the left elbow status post dressing the ER Reviewed imaging. Has left sixth rib fracture No pain at present Tylenol as needed PT recommended rehab; however, insurance declined Plan for dispo Wednesday Mild elevated trop likely due to demand ischemia. #Alzheimer's disease Continue home donepezil and olanzapine Redirect as needed, delirium precautions #Chronic heart failure with preserved ejection fraction Continue home spironolactone and Lasix #Hypokalemia start daily replacement #Atrial fibrillation Continue on metoprolol and Xarelto #Hypertension Continue metoprolol succinate and diuretics Will monitor #GERD Continue omeprazole #Diabetes Hold MASTER IN CHANCERY metformin Sliding scale insulin Will monitor #Hypothyroidism Continue Synthroid #Hyperlipidemia Continue on MASTER IN [place]ANC[place] statin. #History of CVA On statin and Xarelto DVT prophylaxis:On Xarelto CODE STATUS DNR/DNI Will likely be discharged to home with family support and home health on Wednesday Home Health Attestation I certify that this patient is under my care and that I, or a physicians general office assistant working with me, had a face to-face encounter that meets the home health [id number] encounter requirements with this patient. The encounter with the patient was in whole, or in part, for the following medical condition, which is the primary reason for home health care (list medical condition): fall- rib fracture I certify that, based on my findings, the following services are medically necessary home health services: My clinical findings support the need for the above services because: OT Assess ADL Status and Restore Function w ADLs PT Assessment for Endurance / Balance / Strength PT Eval for Safety and Mobility PT Eval for Safety, Gait Training, Assistive Devices PT Gait and Balance Training, Strengthening and Safety Skilled Nsg Assessment Further, I certify that my clinical findings support that this patient is homebound (i.e. absences from home require considerable and taxing effort and are for medical reasons or scientology services or infrequently or of short duration when for other reasons) because: Transportation Assistance/Unable to Leave Home Unassisted Certification for Home Health Services: Based on the above findings, I certify that this patient is confined to the home and needs intermittent intermediate care, physical therapy and/or speech therapy or continues to need occupational therapy. The patient is under my care, and I have initiated the establishment of the plan of care. This patient will be followed by a physician who will periodically review the plan of care. 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 Condition on Discharge: Fair Activity: Per Instructions section Non-emergency contact: Primary Care Provider Call non-emergency contact if: your symptoms worsen Follow-up/Referrals: Dejah Rivas MD [Primary Care Provider] - 11/17/24 12:00 pm (Date & Time 11/17/2024 12:00 PM Provider: Dejah Rivas MD Family Medicine [facility]) Diet: Heart Healthy Addtl Attending Provider Instructions: Continue Home PT and OT Pending Studies at Discharge: No Stand-Alone Forms: My [facility] Medications and DC Order Prescriptions: Continued metformin 850 mg Tablet 850 mg PO BIDM Rx Instructions: take at noon and evening meal levothyroxine 50 mcg Tablet 50 mcg PO QAM clotrimazole-betamethasone 1-0.05 % Cream 1 applic TOPICAL BID PRN (Reason: Rash) niacin 500 mg Tablet 500 mg PO QAM atorvastatin 10 mg tablet 10 mg PO QDL Rx Instructions: takes at noon donepezil 10 mg tablet 10 mg PO QPM ferrous sulfate [FeroSul] 325 mg (65 mg iron) tablet 325 mg PO QDL metoprolol tartrate 50 mg tablet 50 mg PO BID Rx Instructions: take at noon and at bedtime omeprazole 20 mg capsule,delayed release(DR/EC) 20 mg PO QDL Rx Instructions: take at noon Xarelto 20 mg tablet 20 mg PO PM furosemide 40 mg Tablet 40 mg PO QAM Qty: 30 0RF haloperidol 5 mg tablet 5 mg PO BID PRN (Reason: agitation) Qty: 20 0RF olanzapine 5 mg tablet,disintegrating 5 mg PO .DAILY AT NOON magnesium oxide 400 mg (241.3 mg magnesium) tablet 400 mg PO QDL spironolactone 25 mg tablet 25 mg PO QAM Discharge Orders: Discharge Order (Routine); Ordered 11/13/24 Ordered By: Richard Valentin/Other Patient Handouts: Falls Prevent Adjust Living Space Admission Data Admit Date/Time: 11/03/24 04:57 Attending Provider: Richard Crump Admit Provider: Len Farah Primary Care Provider: Dejah Rivas Other Providers: Randi Cramer at [facility]; Len Farah; [facility] Other Interventions: Discharge Summary Assessment (RN) Last Done: 11/13/24 11:08
== END 2024-11-13 14:29 | disposition home health service (06) | DRG 206 ==
LOC: ED 21:55 → EDINP 11-03 04:57 → SUATTDRO 11-03 04:57 → 2S 11-03 06:25 → 3W 11-06 16:37